=== PATIENT | female | born 1970 | race African-American/Black ===

== ENCOUNTER 2017-01-05 20:05 | Inpatient (IN) | payer OTHER ==
[~2017-01-05] VITALS: Ht 167.6 cm; Wt 68.1 kg
--- NOTE | 2017-01-05 20:31 | NUR ---
PT A/OX4 BREATHING EFFORTLESSLY ON ROOM AIR, PT STATES SHE HAS BEEN HVAING NAUSEA AND VOMTING OFF AND ON X 3 WEEKS, PT ON MONITOR FAMILY IS IN THE ROOM, IV PLACED, PROJECT MANAGEMENT MANAGER IN THE ROOM, WILL CONTINUE TO MONITOR
[2017-01-05 20:45] LABS: APPEARANCE,URINE Clear (CLEAR); BLOOD, URINE Moderate Ery/uL (NEGATIVE); COLOR,URINE Yellow (YELLOW); KETONES,URINE Trace (NEGATIVE); LEUKOCYTE ESTERASE ,URINE Negative (NEGATIVE); NITRITE, URINE Negative (NEGATIVE); PROTEIN,URINE 100 mg/dl (NEGATIVE); UGLUCOSE Negative (NEGATIVE); UROBILINOGEN,URINE 0.2 EU/dL (0.2)
[2017-01-05 20:46] LABS: PREGNANCY TEST URINE QUAL NEGATIVE (NEGATIVE)
[2017-01-05] MEDS ORDERED: IV SET PRIMARY 1 EA INFUS.SET MC ONE (20:46)
[2017-01-05] MEDS ORDERED: IV NS 0.9% 1,000 ML ONE (20:46)
[2017-01-05 20:53] LABS: BASOPHILS % (AUTO) 0.4 % (0.0-2.0); EOSINOPHILS # (AUTO) 0.1 /CMM (0.0-0.7); EOSINOPHILS % (AUTO) 0.6 % (0.0-6.0); HEMATOCRIT 39 % (33-45); HEMOGLOBIN 12.7 g/dL (11.5-14.8); LYMPHOCYTES # (AUTO) 1.9 /CMM (0.8-4.8); LYMPHOCYTES % (AUTO) 19.8 % (20.0-44.0); MEAN CORPUSCULAR HEMOGLOBIN 29 PG (26.0-33.0); MEAN CORPUSCULAR HGB CONC 32 g/dl (31.0-36.0); MEAN CORPUSCULAR VOLUME 88 fL (82-100); MONOCYTES # (AUTO) 0.4 /CMM (0.1-1.30); MONOCYTES % (AUTO) 4.4 % (2.0-12.0); NEUTROPHILS # (AUTO) 7.4 /CMM (1.8-8.9); NEUTROPHILS % (AUTO) 74.8 % (43.0-81.0); PLATELET COUNT (AUTO) 394 /CMM (150-450); RDW COEFFICIENT OF VARIATION 13.1 (11.5-15.0); RED BLOOD CELL COUNT(AUTO) 4.46 MIL/uL (4.0-5.2); WHITE BLOOD COUNT (AUTO) 9.8 K/uL (4.3-11.0)
[2017-01-05 20:54] LABS: BILIRUBIN,URINE SMALL (NEGATIVE)
[2017-01-05] MEDS ORDERED: IV NS 0.9% 1,000 ML BAG IV ONE (21:00)
[2017-01-05] MEDS ORDERED: IOHEXOL-300 100 ML VIAL IV ONE (21:04)
[2017-01-05] MEDS ORDERED: IV NS 0.9% 250 ML IV ONE ×2 (21:04→22:54)
[2017-01-05 21:05] LABS: CALCIUM, SERUM 9.4 mg/dL (8.5-10.1); CREATININE 1.2 mg/dL (0.6-1.3); POTASSIUM 3.1 mmol/L (3.5-5.1)
[2017-01-05 21:08] LABS: INR 1.21 (0.87-1.13); PROTHROMBIN TIME 12.7 SECS (9.5-12.7)
[2017-01-05 21:16] LABS: ALBUMIN 3.8 g/dL (3.4-5.0); BILIRUBIN,DIRECT 0.2 mg/dL (0.0-0.2); BILIRUBIN,TOTAL 1.4 mg/dL (0.2-1.0); TOTAL PROTEIN, SERUM 6.1 g/dL (6.4-8.2)
[2017-01-05 21:16] LABS: BACTERIA,URINE Moderate /HPF (None Seen); MUCUS,URINE Few /LPF (None Seen); SQUAMOUS EPITHELIAL CELL,UR Many /HPF (None Seen); URINE AMORPHOUS URATE Moderate /HPF (None Seen)
[2017-01-05] MEDS ORDERED: LORAZEPAM INJ 2 MG/ML VIAL ONE (22:39)
[2017-01-05] MEDS ORDERED: DIAZEPAM 5 MG/ML 2 ML DISP.SYRIN ONE (22:44)
[2017-01-05] MEDS ORDERED: CT SWABBABLE VALVE TRANS SET 1 EA INFUS.SET MC ONE (22:54)
[2017-01-05] MEDS ORDERED: IOHEXOL-350 100 ML VIAL IV ONE (22:54)
[2017-01-05] MEDS ORDERED: ONDANSETRON HCL/PF 4 MG/2 ML VIAL IV ONE (23:00)
[2017-01-05] MEDS ORDERED: LORAZEPAM INJ 2 MG/ML VIAL IV ONE (23:00)
[2017-01-05] MEDS ORDERED: DIAZEPAM 5 MG/ML 2 ML DISP.SYRIN IV ONE (23:00)
--- NOTE | 2017-01-05 23:19 | NUR ---
PT BACK FROM CT, PT SLEEPING IN NO APPARENT DISTRESS, MD MADE AWARE WILL CONTINUE TO MONITOR.
[2017-01-05] MEDS ORDERED: IV NS 0.9% 1,000 ML IV PRN (23:27)
[2017-01-05 23:30] VITALS: BP 135/88
[2017-01-05] MEDS ORDERED: MAG HYDROX/AL HYDROX/SIMETH 30 ML UDC PO PRN (23:30)
[2017-01-05] MEDS ORDERED: BUPR-51 PO (23:44)
[2017-01-05] MEDS ORDERED: ESCI20TA PO (23:44)
[2017-01-05] MEDS ORDERED: METOPROLOL TARTRATE 25 MG TABLET ONE (23:48)
[2017-01-05] MEDS ORDERED: SIMVASTATIN 20 MG TABLET ONE (23:48)
[2017-01-05] MEDS ORDERED: ENOXAPARIN SODIUM 80 MG/0.8 ML DISP.SYRIN SQ ONE (23:49)
[2017-01-05] MEDS: SIMVASTATIN 20 MG TABLET PO SCH (23:56)
[2017-01-05] MEDS: ASPIRIN EC 81 MG TABLET.DR PO SCH (23:57)
[2017-01-06] MEDS: ASPIRIN EC 81 MG TABLET.DR PO SCH
[2017-01-06] MEDS ORDERED: METOPROLOL TARTRATE 25 MG TABLET PO SCH
[2017-01-06] MEDS ORDERED: PROCHLORPERAZINE EDISYLATE 10 MG/2 ML VIAL IM PRN
[2017-01-06] MEDS ORDERED: ENOXAPARIN SODIUM 80 MG/0.8 ML DISP.SYRIN SQ ONE
[2017-01-06] MEDS ORDERED: NITROGLYCERIN 0.4 MG/TAB BOTTLE SL PRN
--- NOTE | 2017-01-06 | NUR ---
ASPHALT PLANT WORKER NOTE RECEIVED PATIENT FROM ER, PATIENT IS ALERT AND ORIENTEDX4, DENIES RESPIRATORY DISTRESS OR PAIN AT THIS TIME, COMPLAINS OF SEVERE NAUSEA AND VOMITING. IV ON RIGHT HAND IS PATENT AND INTACT, WILL CONNECT THE FLUID. TELE MONITOR SR 88. SRX2, BED IN LOW POSITION, CALL LIGHT WITHIN REACH, WILL CONTINUE TO MONITOR PATIENT.
[2017-01-06] MEDS ORDERED: ONDANSETRON HCL/PF 4 MG/2 ML VIAL ONE ×2 (00:05→03:18)
[2017-01-06] MEDS: ONDANSETRON HCL/PF 4 MG/2 ML VIAL IV PRN ×2 (00:11→03:57)
[2017-01-06] MEDS ORDERED: IV NS 0.9% 1,000 ML ONE (00:14)
[2017-01-06] MEDS ORDERED: IV SET PRIMARY PUMP SET 1 EA INFUS.SET MC ONE (00:14)
[2017-01-06 00:37] LABS: ABG BASE EXCESS -2.5 mmol/L; ABG PH 7.422 (7.350-7.450); ABG PO2 84.5 mmHg (75.0-100.0); AaDO2 25.7 mmHg; SITE, ABG Right Radial; VENT MODE, BG RA
[2017-01-06] MEDS ORDERED: POTASSIUM CL. PREMIX PERIPHER. 100 ML ONE (02:16)
--- NOTE | 2017-01-06 02:20 | NUR ---
AGRICULTURE TECHNICIAN NOTE PATIENT'S K LEVEL IS 3.1 AND ER DID NOT COVER IT. PAGED DR. SCHWARZ AND GOT AN ORDER OF KCL IV 20MEQ. ORDERS PUT IN AND WILL CARRY OUT.
[2017-01-06] MEDS ORDERED: SECONDARY IV SET 1 EA INFUS.SET MC ONE (02:25)
[2017-01-06] MEDS: POTASSIUM CL. PREMIX PERIPHER. 50 ML IV SCH ×2 (02:29→03:48)
[2017-01-06] MEDS ORDERED: MORPHINE SULFATE INJ 2 MG/ML DISP.SYRIN ONE (02:32)
[2017-01-06] MEDS: MORPHINE SULFATE INJ 2 MG/ML DISP.SYRIN IV PRN (02:39)
--- NOTE | 2017-01-06 02:40 | NUR ---
WEEKEND CAREGIVER NOTE PATIENT COMPLAINS OF ABDOMINAL PAIN 03/26, MORPHINE 2MG IVP GIVEN. WILL MONITOR FOR EFFECTIVENESS.
[2017-01-06 03:26] LABS: BASOPHILS % (AUTO) 0.2 % (0.0-2.0); EOSINOPHILS % (AUTO) 0.1 % (0.0-6.0); HEMATOCRIT 42 % (33-45); HEMOGLOBIN 13.4 g/dL (11.5-14.8); LYMPHOCYTES # (AUTO) 1.7 /CMM (0.8-4.8); LYMPHOCYTES % (AUTO) 12.4 % (20.0-44.0); MEAN CORPUSCULAR HEMOGLOBIN 29 PG (26.0-33.0); MEAN CORPUSCULAR HGB CONC 32 g/dl (31.0-36.0); MEAN CORPUSCULAR VOLUME 89 fL (82-100); MONOCYTES # (AUTO) 0.5 /CMM (0.1-1.30); MONOCYTES % (AUTO) 3.5 % (2.0-12.0); NEUTROPHILS # (AUTO) 11.5 /CMM (1.8-8.9); NEUTROPHILS % (AUTO) 83.8 % (43.0-81.0); PLATELET COUNT (AUTO) 366 /CMM (150-450); RDW COEFFICIENT OF VARIATION 13.9 (11.5-15.0); RED BLOOD CELL COUNT(AUTO) 4.67 MIL/uL (4.0-5.2); WHITE BLOOD COUNT (AUTO) 13.7 K/uL (4.3-11.0)
[2017-01-06 04:00] VITALS: BP 122/68
[2017-01-06 04:05] LABS: CALCIUM, SERUM 8.9 mg/dL (8.5-10.1); CREATININE 1.4 mg/dL (0.6-1.3); MAGNESIUM 1.9 mg/dL (1.8-2.4); PHOSPHORUS 4.2 mg/dL (2.5-4.9); POTASSIUM 3.7 mmol/L (3.5-5.1)
[2017-01-06 04:07] LABS: THYROID STIMULATING HORMONE 4.542 uIU/mL (0.358-3.74)
--- NOTE | 2017-01-06 06:47 | NUR ---
EYEGLASS LENS CUTTER NOTE PATIENT IS RESTING IN BED, NO S/S OF RESPIRATORY DISTRESS OR PAIN NOTED. IV ON RIGHT HAND IS PATENT AND INTACT, NS IS RUNNING. TELE MONITOR SR WITH INVERTED T WAVE 68. WILL ENDORSE TO DAY SHIFT FOR IRLANDA.
[2017-01-06 06:59] VITALS: BP 128/68
--- NOTE | 2017-01-06 07:15 | NUR ---
BAG INSPECTOR INITIAL NOTES REPORT RECEIVED AT THE BEDSIDE. PATIENT IS RESTING COMFORTABLY IN BED. NO SOB OR DISTRESS NOTED AT THIS TIME. PATIENT DENIES PAIN. HEART RATE IS SR AT 66. BED IN A LOW POSITION, CALL LIGHT WITHIN PATIENT REACH. WILL CONTINUE TO MONITOR.
[2017-01-06] MEDS ORDERED: IV NS 0.9% 1,000 ML IV PRN (08:13)
[2017-01-06 08:39] LABS: ALBUMIN 3.7 g/dL (3.4-5.0); BILIRUBIN,DIRECT 0.2 mg/dL (0.0-0.2); BILIRUBIN,TOTAL 1.4 mg/dL (0.2-1.0); TOTAL PROTEIN, SERUM 6.2 g/dL (6.4-8.2)
[2017-01-06] MEDS: PANTOPRAZOLE 40 MG VIAL IV SCH (08:56)
[2017-01-06] MEDS: METOPROLOL TARTRATE 25 MG TABLET PO SCH ×3 (08:56→17:24)
[2017-01-06] MEDS ORDERED: LORAZEPAM INJ 2 MG/ML VIAL IV PRN (11:00)
[2017-01-06] MEDS: DIAZEPAM 5 MG/ML 2 ML DISP.SYRIN IV PRN ×2 (11:00→20:38)
[2017-01-06 12:00] VITALS: BP 150/105
--- NOTE | 2017-01-06 13:58 | NUR ---
YARDER BOSS NOTE WAS TOLD BY JOSE, WHO IS CURRENTLY DOING ECHO ON PATIENT THAT THE EF IS ONLY 20. CALLED DR LAMB WHO ORDERED TO HAVE THE FLUIDS REDUCED TO 40ML/HR. CALLED [facility] FOR TONIO TO INFORM, WAITING FOR RETURN CALL.
[2017-01-06] MEDS ORDERED: ENOXAPARIN SODIUM 40 MG/0.4 ML DISP.SYRIN SQ SCH (14:39)
--- NOTE | 2017-01-06 14:47 | NUR ---
ROTARY ENGRAVER NOTE TONIO NOW AWARE OF PATIENT EF OF 20. TONIO ADDED DAILY LOVENOX TO PATIENT'S MEDS.
[2017-01-06 16:00] VITALS: BP 118/75
[2017-01-06] MEDS ORDERED: BUPROPION XL 150 MG TAB.ER.24 PO ONE (16:30)
--- NOTE | 2017-01-06 17:31 | NUR ---
director it CLOSING NOTE NO SIGNIFICANT CHANGES IN PATIENT CONDITION THROUGHOUT THE SHIFT. NO SOB OR DISTRESS NOTED AT THIS TIME. PATIENT DENIES PAIN. HEART RATE SR ON MONITOR. BED IN A LOW POSITION, CALL LIGHT WITHIN PATIENT REACH. ENDORSED FOR IRLANDA.
--- NOTE | 2017-01-06 19:30 | NUR ---
SPICE GRINDER NOTE, RECEIVED PATIENT AWAKE AND IN BED, NO S/S OR COMPLAINTS OF PAIN AT THIS TIME. PATIENT IS DISPLAYING NO S/S OF APPARENT DISTRESS AT THIS TIME. PATIENT BREATHING IS UNLABORED WITH EQUAL RISE AND FALL OF THE CHEST. PATIENT IS ALERT AND ORIENTED X 4 ON NASAL CANNULA 2 LITERS WITH A SPO2 98%. PATIENT HAS A SALINE LOCK ON RIGHT HAND THAT IS INTACT, PATENT, AND FLUSHING WELL WITH NO S/S OF INFILTRATION. PATIENT ASSISTED WITH TURNING AND REPOSITIONING Q2HR AND PRN FOR COMFORT AND CIRCULATION. PATIENT HAS NO NEEDS AT THIS TIME. PATIENT EDUCATED ON THE USE OF THE CALL LIGHT. PATIENT BED SIDE RAILS UP X2 FOR SAFETY, BED IS LOCKED AND LOW WILL CONTINUE TO MONITOR AND MAINTAIN SAFETY. SINUS RHYTHM WITH INVERTED T WAVE HEART RATE 79.
--- NOTE | 2017-01-06 19:47 | NUR ---
mold chipper closing notes Carina ROTHMAN endorsed to next shift RN to continue care. All needs provided, attended, and anticipated. kept patient clean and comfortable in bed, call light with in patient reach.
[2017-01-06 20:00] VITALS: BP 114/70
--- NOTE | 2017-01-06 20:38 | NUR ---
MIXER OPERATOR HOT METAL NOTE, PATIENT HAS A COMPLAINT OF FEELING ANXIOUS AND WOULD LIKE MEDICATION TO HELP CALM HER DOWN. PATIENT VITAL SIGNS ARE STABLE. GAVE VALIUM 4MG IV PUSH Q6HR PRN ORDERED. WILL REASSESS FOR ANXIETY AND I WILL CONTINUE TO MONITOR THIS PATIENT.
[2017-01-06] MEDS: ENOXAPARIN SODIUM 40 MG/0.4 ML DISP.SYRIN SQ SCH (21:15)
[2017-01-06] MEDS: SIMVASTATIN 20 MG TABLET PO SCH (21:16)
[2017-01-06 23:57] VITALS: BP 117/82
[2017-01-07] VITALS (9 sets, daily range): BP systolic 115–125; BP diastolic 75–104
[2017-01-07] MEDS: METOPROLOL TARTRATE 25 MG TABLET PO SCH ×4 (00:01→17:46)
[2017-01-07] MEDS: MORPHINE SULFATE INJ 2 MG/ML DISP.SYRIN IV PRN ×2 (01:47→20:22)
--- NOTE | 2017-01-07 01:47 | NUR ---
STEAMER TENDER NOTE, PATIENT HAS A COMPLAINT OF ABDOMINAL PAIN AT 5 OUT 10 ON THE PAIN SCALE. PATIENT VITAL SIGNS ARE STABLE. GAVE MORPHINE 2MG IV PUSH Q4HR PRN ORDERED. WILL REASSESS PAIN AND I WILL CONTINUE TO MONITOR THIS PATIENT.
--- NOTE | 2017-01-07 06:09 | NUR ---
GRINDER OPERATOR SURFACE TOOL NOTE, PATIENT AWAKE AND IN BED, HAS A COMPLAINT OF ABDOMINAL PAIN 3 OUT 10 ON THE PAIN SCALE. PATIENT IS RECEIVING IV PAIN MEDICATION FOR THIS PAIN. PATIENT IS DISPLAYING NO S/S OF APPARENT DISTRESS AT THIS TIME. PATIENT BREATHING IS UNLABORED WITH EQUAL RISE AND FALL OF THE CHEST. PATIENT IS ALERT AND ORIENTED X 4 ON NASAL CANNULA 2 LITERS WITH A SPO2 98%. PATIENT HAS A SALINE LOCK ON LEFT FOREARM 22 GAUGE THAT IS INTACT, PATENT, AND FLUSHING WELL WITH NO S/S OF INFILTRATION. PATIENT ASSISTED WITH TURNING AND REPOSITIONING Q2HR AND PRN FOR COMFORT AND CIRCULATION. ALL PATIENT NEEDS ANTICIPATED AND MET. PATIENT KEPT CLEAN, DRY, AND COMFORTABLE THROUGH OUT THE SHIFT. PATIENT BED SIDE RAILS UP X2 FOR SAFETY, BED IS LOCKED AND LOW WILL ENDORSE TO AM SHIFT NURSE FOR CONTINUATION OF CARE. SINUS RHYTHM HEART RATE 65.
[2017-01-07 07:11] LABS: HEMATOCRIT 46 % (33-45); HEMOGLOBIN 14.5 g/dL (11.5-14.8); LYMPHOCYTES # (AUTO) 1.6 /CMM (0.8-4.8); LYMPHOCYTES % (AUTO) 7.4 % (20.0-44.0); MEAN CORPUSCULAR HEMOGLOBIN 29 PG (26.0-33.0); MEAN CORPUSCULAR HGB CONC 32 g/dl (31.0-36.0); MEAN CORPUSCULAR VOLUME 91 fL (82-100); MONOCYTES # (AUTO) 1.3 /CMM (0.1-1.30); NEUTROPHILS # (AUTO) 18.2 /CMM (1.8-8.9); NEUTROPHILS % (AUTO) 86.6 % (43.0-81.0); PLATELET COUNT (AUTO) 356 /CMM (150-450); RDW COEFFICIENT OF VARIATION 14.3 (11.5-15.0); RED BLOOD CELL COUNT(AUTO) 5.09 MIL/uL (4.0-5.2)
[2017-01-07 08:37] LABS: ALBUMIN 3.7 g/dL (3.4-5.0); BILIRUBIN,TOTAL 2.4 mg/dL (0.2-1.0); CALCIUM, SERUM 8.8 mg/dL (8.5-10.1); MAGNESIUM 2.1 mg/dL (1.8-2.4); POTASSIUM 4.7 mmol/L (3.5-5.1); TOTAL PROTEIN, SERUM 6.1 g/dL (6.4-8.2)
[2017-01-07] MEDS ORDERED: BUPROPION XL 150 MG TAB.ER.24 PO SCH (09:00)
--- NOTE | 2017-01-07 09:05 | NUR ---
RN Notes On bed aw3ake,alert and oriented. Not in any form of distress.No chest pain. With 02 inhalation at 2 LPM via nasal canula saturating at 97% with no SOB. Both lungs clear to auscultate. With IV access on left forearm gg 22 patent and intact. On tele monitor SR with HR of 72. Spoke with CT department tech and said CT scheduled at 10 am. Resting comfortably.
[2017-01-07] MEDS: PANTOPRAZOLE 40 MG VIAL IV SCH (09:20)
[2017-01-07] MEDS ORDERED: IOHEXOL-350 100 ML VIAL IV ONE (09:29)
[2017-01-07] MEDS ORDERED: CT SWABBABLE VALVE TRANS SET 1 EA INFUS.SET MC ONE (09:29)
[2017-01-07] MEDS ORDERED: IV NS 0.9% 250 ML IV ONE (09:29)
[2017-01-07] MEDS ORDERED: METOPROLOL TARTRATE INJ 5 MG/5 ML AMPUL IVP ONE (10:10)
--- NOTE | 2017-01-07 10:56 | NUR ---
RN Notes Came back from radiology department and per RN Angel that procedure was not done because of elevated creatinine. CHAZ Norris is aware and ordered to obtain copy of echocardiogram done at the office of Dr Santos Boone, authorization obtained from patient and spoke to Tha. Will follow up.
--- NOTE | 2017-01-07 11:40 | NUR ---
CANCELLED PER NURSE(CHONG ) DUE TO HIGH CREAT.
--- NOTE | 2017-01-07 12:58 | NUR ---
RN Notes Spoke with Dr Glover and verified with him patient's diet and he said to give her mechanical soft diet
[2017-01-07] MEDS: BUPROPION 150 MG PO SCH (13:10)
--- NOTE | 2017-01-07 19:20 | NUR ---
MS/PROFESSOR OF ANTHROPOLOGY; RECEIVED PT IN BED SLEEPING. BREATHING NON LABORED AND EVEN. NO S/S OF DISTRESS. BED ON LOWER POSITION AND LOCKED FOR SAFETY. UPPER PART OF BED SIDE RAILS ARE UP FOR SAFETY. WILL CONTINUE TO MONITOR. CALL LIGHT WITHIN REACH.
--- NOTE | 2017-01-07 19:35 | NUR ---
MS/MANAGER FOOD BEVERAGE; RE CHECKED PT , PT IN BED AWAKE, ALERT AND ORIENTED. DENIES ANY PAIN. BREATHING NON LABORED. HL ON LFA INTACT. WITH MALE VISITOR. PT INSTRUCTED TO CALL FOR HELP AND CALL LIGHT WITHIN REACH. WILL CONTINUE TO MONITOR.
--- NOTE | 2017-01-07 20:05 | NUR ---
MS/BLOOD SPLATTER ANALYST; C/O ABDOMINAL PAIN WITH PAIN LEVEL 8 OUT OF 10 AND PT WANTS PAIN SHOT. WITH O2 2L NC ON. BP 119/ 99 , P 80 , O2 SAT ON 2 L NC 100%. I INFORMED THE RN TO GIVE PAIN SHOT.
--- NOTE | 2017-01-07 20:30 | NUR ---
MS/BANK NOTE DESIGNER; CHARGE NURSE KEELY GARCIA HER ROUNDS TOLD ME PT IS COLD CLAMMY. RE CHECKED BP ON RA 125/ 104, P 77 , O2 SAT ON 2L NC 98 %. PERSPIRING ALSO. LIVING SPECIALIST CHANGED PT TOP SHIRT PT WEARING TO HOSPITAL GOWN AND BED LINENS ALSO. PT AWAKE, ALERT AND VERBALLY RESPONSIVE. PT BIT ANXIOUS. PER LIVING SPECIALIST PT WAS LIKE THAT LAST NIGHT. OFFERED WARM BLANKET PT REFUSED. OFFERED WARM DRINKS REFUSED ALSO. CHARGE NURSE SAID TO CHECK PT BS.
--- NOTE | 2017-01-07 21:20 | NUR ---
MS/BURNER TECHNICIAN; BS 121 AND CHARGE NURSE KEELY INFORMED OF THE BS. I ASKED THE PT. IF OK TO HAVE WARM BLANKET AND SHE OK. SO WARM BLANKET APPLIED.
--- NOTE | 2017-01-07 22:00 | NUR ---
MS/INSURANCE COMPLIANCE ANALYST; BP RE CHECKED ON LA 116 / 85, P 65 , O2 SAT ON 2L NC 100 %.
--- NOTE | 2017-01-07 22:25 | NUR ---
MS/SPONSORSHIP COORDINATOR; SLEEPING AT THIS TIME. AWAKEN FOR MEDS GIVEN SWALLOW WITHOUT PROBLEM . BACK TO SLEEP. WILL CONTINUE TO MONITOR.
[2017-01-07] MEDS: ENOXAPARIN SODIUM 40 MG/0.4 ML DISP.SYRIN SQ SCH (22:29)
[2017-01-07] MEDS: ESCITALOPRAM OXALATE (10 MG) 10 MG TABLET PO SCH (22:32)
[2017-01-07] MEDS: SIMVASTATIN 20 MG TABLET PO SCH (22:34)
--- NOTE | 2017-01-07 23:30 | NUR ---
MS/CONSTRUCTION TRENCH DIGGER; DR. Saúl ROCHA CAME TO PT ROOM PT SLEEPING AT THIS TIME. DR. Saúl ROCHA ASKED RE PT CONDITION. I TOLD DR. Saúl ROCHA THAT PT WAS C/O ABD. PAIN AND PAIN SHOT OF MORPHINE 2 MG IVP WAS GIVEN PER OK REQUEST AND ORDERED. ALSO I TOLD HIM FURTHER THAT PT IS COLD CLAMMY VITAL SIGNS WERE FINE. I OFFERED PP MAALOX BUT REFUSED. DR. Saúl ROCHA IS AWARE OF PT WBC IS HIGH . HE SAID JUST MONITOR THE PT. I INFORMED THE CHARGE NURSE KEELY THAT I NOTIFIED DR. Saúl ROCHA OF PT CURRENT CONDITION.
[2017-01-08] VITALS (8 sets, daily range): BP systolic 110–126; BP diastolic 75–81
--- NOTE | 2017-01-08 | NUR ---
MS/LAMINATION ASSEMBLER; PT IB BED SLEEPING. BREATHING NON LABORED. WITH O2 2L NC ON.
[2017-01-08 00:38] LABS: APPEARANCE,URINE CLOUDY (CLEAR); BILIRUBIN,URINE NEGATIVE (NEGATIVE); BLOOD, URINE TRACE Ery/uL (NEGATIVE); COLOR,URINE YELLOW (YELLOW); KETONES,URINE NEGATIVE (NEGATIVE); LEUKOCYTE ESTERASE ,URINE NEGATIVE (NEGATIVE); NITRITE, URINE NEGATIVE (NEGATIVE); PROTEIN,URINE 2+ mg/dl (NEGATIVE); UGLUCOSE NEGATIVE (NEGATIVE)
[2017-01-08 00:45] LABS: RBC,URINE 0-2 /HPF (0-2)
[2017-01-08 00:46] LABS: BACTERIA,URINE Few /HPF (None Seen); SQUAMOUS EPITHELIAL CELL,UR Few /HPF (None Seen); URINE AMORPHOUS URATE Many /HPF (None Seen)
[2017-01-08 00:47] LABS: CREATININE, URINE 210.3 MG/DL (30.0-125.0); URINE TOTAL PROTEIN 115.4 mg/dL (0-11.9)
[2017-01-08] MEDS: METOPROLOL TARTRATE 25 MG TABLET PO SCH ×4 (00:55→17:49)
[2017-01-08 01:00] LABS: EOSINOPHIL,URINE None Seen
--- NOTE | 2017-01-08 02:15 | NUR ---
MS/DIRECTOR SKILLS; PT IN BED SLEEPING QUIETLY. BREATHING NON LABORED. WITH O2 2L NC ON. WILL CONTINUE TO MONITOR.
--- NOTE | 2017-01-08 04:00 | NUR ---
MS/LEGAL BILLING COORDINATOR; PT IN BED ASLEEP. BREATHING NON LABORED. CONTINUE TO MONITOR.
--- NOTE | 2017-01-08 06:33 | NUR ---
MS/ECHOCARDIOGRAPH TECH; PT SLEPT AT GOOD INTERVALS. BREATHING NON LABORED. NO S/S OF DISTRESS. PT STATES SHE VOIDED LAST NIGHT BUT NO BM. WILL CONTINUE TO MONITOR. CALL LIGHT WITHIN REACH. WILL ENDORSE TO THE DAY SHIFT NURSE.
[2017-01-08 06:58] LABS: ALBUMIN 3.5 g/dL (3.4-5.0); CALCIUM, SERUM 8.5 mg/dL (8.5-10.1); CREATININE 1.8 mg/dL (0.6-1.3); MAGNESIUM 2.2 mg/dL (1.8-2.4); PHOSPHORUS 4.8 mg/dL (2.5-4.9); POTASSIUM 4.2 mmol/L (3.5-5.1); TOTAL PROTEIN, SERUM 5.7 g/dL (6.4-8.2)
[2017-01-08 07:05] LABS: EOSINOPHILS % (AUTO) 0.1 % (0.0-6.0); HEMATOCRIT 41 % (33-45); HEMOGLOBIN 13.5 g/dL (11.5-14.8); LYMPHOCYTES # (AUTO) 1.2 /CMM (0.8-4.8); LYMPHOCYTES % (AUTO) 5.5 % (20.0-44.0); MEAN CORPUSCULAR HEMOGLOBIN 29 PG (26.0-33.0); MEAN CORPUSCULAR HGB CONC 33 g/dl (31.0-36.0); MEAN CORPUSCULAR VOLUME 89 fL (82-100); MONOCYTES # (AUTO) 1.5 /CMM (0.1-1.30); MONOCYTES % (AUTO) 7.1 % (2.0-12.0); NEUTROPHILS # (AUTO) 18.9 /CMM (1.8-8.9); NEUTROPHILS % (AUTO) 87.3 % (43.0-81.0); PLATELET COUNT (AUTO) 376 /CMM (150-450); RDW COEFFICIENT OF VARIATION 14.8 (11.5-15.0); RED BLOOD CELL COUNT(AUTO) 4.62 MIL/uL (4.0-5.2); WHITE BLOOD COUNT (AUTO) 21.6 K/uL (4.3-11.0)
--- NOTE | 2017-01-08 07:20 | NUR ---
RN INITIAL NOTES: RECEIVED PATIENT AWAKE IN BED IN NO ACUTE SIGNS OF DISTRESS. A/O X4, NO C/O PAIN OR DISCOMFORTS AT THIS TIME. ON 02 INHALATION VIA N/C AT 2LPM, BREATHING UNLABORED. IV ACCESS ON LEFT FA G #22 INTACT AND PATENT. CALL LIGHT WITH IN REACH OF PT. SIDE-RAILS UP X2. BED LOW AND LOCKED. SAFETY PRECAUTIONS MAINTAINED. WILL CONTINUE TO MONITOR ACCORDINGLY
[2017-01-08] MEDS: BUPROPION 150 MG PO SCH (08:21)
[2017-01-08] MEDS: PANTOPRAZOLE 40 MG VIAL IV SCH (08:21)
[2017-01-08] MEDS ORDERED: ALPRAZOLAM 1 MG TABLET PO PRN (08:30)
--- NOTE | 2017-01-08 10:43 | NUR ---
RN NOTES MOLDER WAX BALL CAME TO UNIT TO DRAW BLOOD FOR AMMONIA LEVEL BUT PATIENT WAS COMFORTABLY ASLEEP AND DIDN'T WANT TO DISTURB HER. MOLDER WAX BALL WILL COME TO DO IT LATER. WILL CONTINUE TO MONITOR
[2017-01-08] MEDS: ERGOCALCIFEROL (VITAMIN D 2) 50,000 UNIT CAPSULE PO SCH (11:11)
--- NOTE | 2017-01-08 14:30 | NUR ---
RN NOTES PATIENT COMPLAINTS OF STOMACH UPSET WHILE EATING, REQUESTED MAALOX 30ML AND WAS GIVEN. PATIENT CALM AND RESTING COMFORTABLY IN BED AT THIS TIME WITH FAMILY AT BEDSIDE. WILL CONTINUE TO MONITOR
--- NOTE | 2017-01-08 15:21 | NUR ---
RN NOTES URINE SPECIMEN FOR URINALYSIS AND CULTURE COLLECTED. CALLED LAB TO PICK-UP SPECIMEN.
[2017-01-08 16:24] LABS: APPEARANCE,URINE SL CLOUDY (CLEAR); BILIRUBIN,URINE NEGATIVE (NEGATIVE); BLOOD, URINE TRACE Ery/uL (NEGATIVE); COLOR,URINE YELLOW (YELLOW); KETONES,URINE NEGATIVE (NEGATIVE); LEUKOCYTE ESTERASE ,URINE NEGATIVE (NEGATIVE); NITRITE, URINE NEGATIVE (NEGATIVE); PROTEIN,URINE 2+ mg/dl (NEGATIVE); UGLUCOSE NEGATIVE (NEGATIVE)
[2017-01-08 16:33] LABS: BACTERIA,URINE Few /HPF (None Seen); CREATININE, URINE 197.9 MG/DL (30.0-125.0); RBC,URINE 0-2 /HPF (0-2); SQUAMOUS EPITHELIAL CELL,UR Moderate /HPF (None Seen); URINE TOTAL PROTEIN 83.4 mg/dL (0-11.9)
[2017-01-08 16:56] LABS: EOSINOPHIL,URINE None Seen
--- NOTE | 2017-01-08 18:50 | NUR ---
RN NOTES PATIENT RESTING IN BED ALERT AND ORIENTED X 4. VERBALLY RESPONSIVE WITH NO COMPLAINTS OF PAIN DURING THE DAY. CONTINUES ON 02 VIA N/C AT 2LPM AT THIS TIME, BREATHING UNLABORED WITH NO ACUTE RESPIRATORY DISTRESS NOTED. IV ACCESS ON LEFT FA INTACT AND PATENT. CALL LIGHT WITHIN REACH. ALL SAFETY PRECAUTIONS MAINTAINED. ALL NEEDS AND CARE WELL PROVIDED. DUE MEDS GIVEN ORDERED AND TOLERATED. ENDORSED TO JEWELRY DEPARTMENT SUPERVISOR FOR IRLANDA.
--- NOTE | 2017-01-08 19:25 | NUR ---
RN OPEN NOTES RECEIVED PATIENT RESTING IN BED WITH FAMILY AT BEDSIDE. A/O X4. NO SIGNS OF DISTRESS OR DISCOMFORT. BREATHING EVEN AND UNLABORED. ON 2LPM 02 VIA NC. IV ACCESS IN LFA PATENT AND INTACT, NO SIGNS OF REDNESS OR INFILTRATION. BED IN LOW LOCKED POSITION WITH SIDE RAILS X2. CALL LIGHT WITHIN REACH. WILL CONTINUE TO MONITOR.
[2017-01-08] MEDS: ESCITALOPRAM OXALATE (10 MG) 10 MG TABLET PO SCH (21:52)
[2017-01-08] MEDS: ENOXAPARIN SODIUM 30 MG/0.3 ML DISP.SYRIN SQ SCH (21:53)
[2017-01-09] MEDS: METOPROLOL TARTRATE 25 MG TABLET PO SCH ×4 (05:31→18:15)
[2017-01-09 06:40] LABS: EOSINOPHILS % (AUTO) 0.1 % (0.0-6.0); HEMATOCRIT 40 % (33-45); HEMOGLOBIN 12.9 g/dL (11.5-14.8); LYMPHOCYTES # (AUTO) 1.4 /CMM (0.8-4.8); LYMPHOCYTES % (AUTO) 8.6 % (20.0-44.0); MEAN CORPUSCULAR HEMOGLOBIN 29 PG (26.0-33.0); MEAN CORPUSCULAR HGB CONC 33 g/dl (31.0-36.0); MEAN CORPUSCULAR VOLUME 89 fL (82-100); MONOCYTES # (AUTO) 0.9 /CMM (0.1-1.30); MONOCYTES % (AUTO) 5.3 % (2.0-12.0); NEUTROPHILS # (AUTO) 14.2 /CMM (1.8-8.9); PLATELET COUNT (AUTO) 343 /CMM (150-450); RED BLOOD CELL COUNT(AUTO) 4.45 MIL/uL (4.0-5.2); WHITE BLOOD COUNT (AUTO) 16.5 K/uL (4.3-11.0)
--- NOTE | 2017-01-09 06:55 | NUR ---
RN CLOSING NOTES PATIENT RESTING IN BED. A/O X4. NO SIGNS OF DISTRESS OR DISCOMFORT. BREATHING EVEN AND UNLABORED. ON 2LPM 02 VIA NC. IV ACCESS IN LFA PATENT AND INTACT, NO SIGNS OF REDNESS OR INFILTRATION. NO SIGNIFICANT CHANGES THROUGH THE NIGHT. ALL NEEDS MET. BED IN LOW LOCKED POSITION WITH SIDE RAILS X2. CALL LIGHT WITHIN REACH. WILL ENDORSE TO AM SHIFT FOR IRLANDA.
[2017-01-09 06:56] LABS: ALBUMIN 3.4 g/dL (3.4-5.0); BILIRUBIN,TOTAL 2.4 mg/dL (0.2-1.0); CALCIUM, SERUM 8.2 mg/dL (8.5-10.1); CREATININE 1.6 mg/dL (0.6-1.3); MAGNESIUM 2.3 mg/dL (1.8-2.4); PHOSPHORUS 3.2 mg/dL (2.5-4.9); POTASSIUM 3.1 mmol/L (3.5-5.1); TOTAL PROTEIN, SERUM 5.4 g/dL (6.4-8.2)
--- NOTE | 2017-01-09 07:12 | NUR ---
RN INITIAL NOTES: PATIENT RECEIVED ASLEEP IN BED, EASILY AWAKENS. A/O X4, NO C/O PAIN OR DISCOMFORTS AT THIS TIME. ON 02 VIA N/C AT 2LPM, BREATHING UNLABORED. IV ACCESS ON LEFT FA G #22 INTACT AND PATENT. CALL LIGHT WITH IN REACH OF PT. SIDE-RAILS UP X2. BED LOW AND LOCKED. SAFETY PRECAUTIONS MAINTAINED. WILL CONTINUE TO MONITOR ACCORDINGLY
[2017-01-09 08:00] VITALS: BP 118/84
[2017-01-09] MEDS: PANTOPRAZOLE 40 MG VIAL IV SCH (08:47)
[2017-01-09] MEDS: BUPROPION 150 MG PO SCH (08:47)
--- NOTE | 2017-01-09 09:00 | NUR ---
RN NOTES PATIENT NOTED WITH LOW K 3.1. DR LAMB CAME AND EXAMINED PATIENT. ORDERED TO GIVE K DUR 20MEQ X 2DOSES. WILL CONTINUE TO MONITOR
[2017-01-09] MEDS: POTASSIUM CHLORIDE 20 MEQ TAB.PRT.SR PO SCH ×2 (09:13→11:22)
--- NOTE | 2017-01-09 09:23 | NUR ---
RN NOTES CHAZ SUN CAME AND EVALUATED PATIENT. HE EXPLAINED TO PATIENT REGARDING ALL BLOOD RESULTS THAT WAS DONE TO HER THIS MORNING AND PATIENT VERBALIZED UNDERSTANDING. WILL CONTINUE TO MONITOR.
[2017-01-09 09:44] LABS: *SPE A/G RATIO 1.9 (0.7-1.7); *SPE ALBUMIN 3.7 g/dL (2.9-4.4); *SPE ALPHA-1-GLOBULIN 0.2 g/dL (0.0-0.4); *SPE ALPHA-2-GLOBULIN 0.4 g/dL (0.4-1.0); *SPE BETA GLOBULIN 0.8 g/dL (0.7-1.3); *SPE GLOBULIN, TOTAL 1.9 g/dL (2.2-3.9); *SPE M-SPIKE Not Observed g/dL (Not Observed); *SPE PROTEIN TOTAL 5.6 g/dL (6.0-8.5); *SPEGAMMA GLOBULIN 0.5 g/dL (0.4-1.8)
[2017-01-09 12:36] LABS: PTH, INTACT 149 pg/mL (15-65)
--- NOTE | 2017-01-09 15:20 | NUR ---
RN NOTES PATIENT COMPLAINTS OF SLIGHT SOB 30 MINUTES AFTER PHYSICAL THERAPIST HAVE HER EVALUATED AND WALK FOR FEW STEPS. SP02 CHECKED AND WAS 95%. 02 VIA N/C AT 2LPM ADMINISTERED. CHAZ SUN MADE AWARE AND SAID TO CONTINUE TO CLOSELY MONITOR PATIENT.
[2017-01-09 16:00] VITALS: BP 112/88
--- NOTE | 2017-01-09 17:40 | NUR ---
RN NOTES CHAZ SAMSON CAME TO UNIT AND EVALUATED PATIENT AND ORDERED MULTIPLE BLOOD WORKS. LAB CALLED AND SAID THAT "[place]" TEST IS NOT DONE IN THE HOSPITAL. CHAZ SAMSON MADE AWARE AND SAID TO CANCELLED SAID BLOOD WORK. MRSA SWAB SAME ORDERED AND COLLECTED. SPUTUM SPECIMEN FOR CULTURE STILL NEED TO BE COLLECTED. WILL CONTINUE TO MONITOR
--- NOTE | 2017-01-09 17:58 | NUR ---
RN NOTES CINDER SNAPPER CAME TO DRAW BLOOD FOR BLOOD WORKS FROM PATIENT BUT PATIENT IS HARD STICK AND UN-ABLE TO DRAW. GENERAL MAINTENANCE HELPER SAID THAT SHE WILL COME AND TRY AGAIN LATER TONIGHT. WILL ENDORSED TO CHORAL DIRECTOR NURSE.
--- NOTE | 2017-01-09 18:45 | NUR ---
RN CLOSING NOTES PATIENT RESTING COMFORTABLY IN BED AT MODERATE HIGH BACKREST POSITION. ALERT AND ORIENTED X4, NO SIGNS OF DISTRESS OR DISCOMFORT. ALL NEEDS AND CARE PROVIDED WELL. ON 2LPM 02 VIA N/C IN PROGRESS, NO SIGNS OF ACUTE RESPIRATORY DISTRESS AT THIS TIME WITH SP02 OF 98% NOTED. IV ACCESS IN LFA PATENT AND INTACT, NO SIGNS OF REDNESS OR INFILTRATION. ALL DUE MEDS GIVEN ORDERED AND TOLERATED. BED IN LOW LOCKED POSITION WITH SIDE RAILS X2. CALL LIGHT WITHIN REACH. WILL ENDORSE TO RN TEACHER NURSE FOR IRLANDA.
--- NOTE | 2017-01-09 19:15 | NUR ---
RN OPEN NOTES RECEIVED PATIENT AWAKE IN BED WITH FAMILY AT BEDSIDE. A/O X4. NO SIGNS OF DISTRESS OR DISCOMFORT. BREATHING EVEN AND UNLABORED. ON 2LPM 02 VIA NC. IV ACCESS IN LFA PATENT AND INTACT, NO SIGNS OF REDNESS OR INFILTRATION. BED IN LOW LOCKED POSITION WITH SIDE RAILS X2. CALL LIGHT WITHIN REACH. WILL CONTINUE TO MONITOR.
[2017-01-09 20:00] VITALS: BP_SYST 123; BP_DIAS 77; BP_DIAS 86
[2017-01-09] MEDS: ESCITALOPRAM OXALATE (10 MG) 10 MG TABLET PO SCH (21:09)
[2017-01-09] MEDS: ENOXAPARIN SODIUM 30 MG/0.3 ML DISP.SYRIN SQ SCH (21:11)
[2017-01-10] VITALS: BP 127/85
[2017-01-10] MEDS: METOPROLOL TARTRATE 25 MG TABLET PO SCH ×5 (00:15→23:38)
[2017-01-10 06:34] LABS: BASOPHILS # (AUTO) 0.1 /CMM (0.0-0.2); BASOPHILS % (AUTO) 0.3 % (0.0-2.0); EOSINOPHILS % (AUTO) 0.3 % (0.0-6.0); HEMATOCRIT 44 % (33-45); HEMOGLOBIN 14.2 g/dL (11.5-14.8); LYMPHOCYTES % (AUTO) 10.4 % (20.0-44.0); MEAN CORPUSCULAR HEMOGLOBIN 29 PG (26.0-33.0); MEAN CORPUSCULAR HGB CONC 32 g/dl (31.0-36.0); MEAN CORPUSCULAR VOLUME 89 fL (82-100); MONOCYTES # (AUTO) 1.2 /CMM (0.1-1.30); MONOCYTES % (AUTO) 6.5 % (2.0-12.0); NEUTROPHILS # (AUTO) 15.6 /CMM (1.8-8.9); NEUTROPHILS % (AUTO) 82.5 % (43.0-81.0); PLATELET COUNT (AUTO) 376 /CMM (150-450); RDW COEFFICIENT OF VARIATION 14.6 (11.5-15.0); RED BLOOD CELL COUNT(AUTO) 4.96 MIL/uL (4.0-5.2)
[2017-01-10 06:51] LABS: ALBUMIN 3.5 g/dL (3.4-5.0); BILIRUBIN,TOTAL 2.5 mg/dL (0.2-1.0); CALCIUM, SERUM 8.5 mg/dL (8.5-10.1); CREATININE 1.4 mg/dL (0.6-1.3); POTASSIUM 4.2 mmol/L (3.5-5.1); TOTAL PROTEIN, SERUM 5.8 g/dL (6.4-8.2)
--- NOTE | 2017-01-10 06:58 | NUR ---
RN NOTES INFORMED ROLDAN WARE OF CRITICAL LAB VALUE- LACTIC ACID 2.7. WILL ENDORSE TO AM SHIFT FOR IRLANDA.
[2017-01-10 07:29] LABS: BAND % (MANUAL) 1 % (0.0-5.0); LYMPHOCYTES % (MANUAL) 12 % (16-48); MONOCYTES % (MANUAL) 3 % (0-11.0); NEUTROPHILS % (MANUAL) 84 (42-76)
[2017-01-10] MEDS ORDERED: IV NS 0.9% 1,000 ML BAG IV PRN (07:30)
[2017-01-10] MEDS ORDERED: IV NS 0.9% 1,000 ML IV PRN (07:30)
--- NOTE | 2017-01-10 07:30 | NUR ---
RECEIVED PT. IN AM,A/O X4,WEAK,PALE,VS STABLE.HEP LOCK IN PLACE.LT. FOREARM.
[2017-01-10 08:00] VITALS: BP 114/83
[2017-01-10] MEDS ORDERED: MEROPENEM 1 G in IV NS 0.9% 100 ML IV SCH (08:00)
[2017-01-10 08:56] LABS: BILIRUBIN,DIRECT 0.9 mg/dL (0.0-0.2)
[2017-01-10] MEDS ORDERED: FEE PK DOSING 1 MIN EA MC ONE (09:04)
[2017-01-10] MEDS ORDERED: SECONDARY IV SET 1 EA INFUS.SET MC ONE ×2 (09:09→23:31)
[2017-01-10] MEDS: MEROPENEM 1 G in IV NS 0.9% 100 ML IV SCH ×2 (09:15→20:23)
[2017-01-10] MEDS: BUPROPION 150 MG PO SCH (09:31)
[2017-01-10] MEDS: PANTOPRAZOLE 40 MG TABLET.DR PO SCH (09:31)
[2017-01-10] MEDS: VANCOMYCIN HCL 125 MG/2.5 ML ORAL.SUSP PO SCH ×4 (09:57→20:23)
[2017-01-10] MEDS ORDERED: VANCOMYCIN 1 GM in IV D5W 250 ML IV ONE (10:00)
[2017-01-10] MEDS: MICAFUNGIN SODIUM 100 MG in IV NS 0.9% 100 ML IV SCH (10:01)
--- NOTE | 2017-01-10 11:00 | NUR ---
PT. MADE AWARE THAT SPUTUM SAMPLE AND STOOL SAMPLE NEEDED.INSISTED ON GETTING OOB TO VOID ASSISTED BY TACK DRILLER AND RN,AND INSTRUCTED NOT TO GET OOB WITHOUT HELP.
[2017-01-10] MEDS: IV NS 0.9% 250 ML IV PRN (11:18)
[2017-01-10] MEDS ORDERED: IV SET PRIMARY PUMP SET 1 EA INFUS.SET MC ONE (11:21)
--- NOTE | 2017-01-10 12:00 | NUR ---
TONIO SUN MANAGER MANAGEMENT CONTACTED PT,S SPOUSE HERE AND WOULD LIKE TO TALK WITH HIM.TONIO HERE TO SPEAK WITH .
--- NOTE | 2017-01-10 13:00 | NUR ---
IV LEAKING AND RESTARTED RT.HAND BY TONIO SUN.
[2017-01-10 13:32] LABS: *EBV AB VCA, IgG >600.0 U/mL (0.0-17.9); *EBV AB VCA, IgM <36.0 U/mL (0.0-35.9)
--- NOTE | 2017-01-10 14:00 | NUR ---
SEVERAL TIMES PT. CALLED OUT AND SAID SHE COULD NOT BREATHE,BOTH TIMES POX READ 100%.PT. WITH HX OF PANIC ATTACKS.
[2017-01-10 16:00] VITALS: BP 124/83
--- NOTE | 2017-01-10 18:00 | NUR ---
DR. LUJAN,HIS STOCK UNLOADER AND DR. LAMB IN TO SEE PT.
--- NOTE | 2017-01-10 19:30 | NUR ---
RN NOTE RECEIVED REPORT. PT AAOX4. NO C/O PAIN OR DISTRESS AT THIS TIME. DENIES SOB/CP. BREATHING NON-LABORED AND EVEN, ON NC. R WRIST IV INTACT AND PATENT. RESTING COMFORTABLY IN BED. CALL LIGHT IN REACH, WILL CONT TO MONITOR.
[2017-01-10 20:00] VITALS: BP 116/88
[2017-01-10] MEDS: ENOXAPARIN SODIUM 30 MG/0.3 ML DISP.SYRIN SQ SCH (20:24)
[2017-01-10] MEDS: ESCITALOPRAM OXALATE (10 MG) 10 MG TABLET PO SCH (22:03)
[2017-01-10] MEDS: VANCOMYCIN 0.75 GM in IV D5W 250 ML IV SCH (23:37)
[2017-01-11] MEDS: METOPROLOL TARTRATE 25 MG TABLET PO SCH ×4 (05:26→23:23)
[2017-01-11 05:56] LABS: BASOPHILS # (AUTO) 0.1 /CMM (0.0-0.2); BASOPHILS % (AUTO) 0.4 % (0.0-2.0); EOSINOPHILS % (AUTO) 0.2 % (0.0-6.0); HEMATOCRIT 42 % (33-45); HEMOGLOBIN 13.8 g/dL (11.5-14.8); LYMPHOCYTES % (AUTO) 11.1 % (20.0-44.0); MEAN CORPUSCULAR HEMOGLOBIN 29 PG (26.0-33.0); MEAN CORPUSCULAR HGB CONC 33 g/dl (31.0-36.0); MEAN CORPUSCULAR VOLUME 88 fL (82-100); MONOCYTES # (AUTO) 1.3 /CMM (0.1-1.30); MONOCYTES % (AUTO) 6.9 % (2.0-12.0); NEUTROPHILS # (AUTO) 14.7 /CMM (1.8-8.9); NEUTROPHILS % (AUTO) 81.4 % (43.0-81.0); PLATELET COUNT (AUTO) 410 /CMM (150-450); RDW COEFFICIENT OF VARIATION 14.8 (11.5-15.0); WHITE BLOOD COUNT (AUTO) 18.1 K/uL (4.3-11.0)
[2017-01-11 06:13] LABS: ALBUMIN 3.2 g/dL (3.4-5.0); BILIRUBIN,TOTAL 2.1 mg/dL (0.2-1.0); CALCIUM, SERUM 8.1 mg/dL (8.5-10.1); CREATININE 1.2 mg/dL (0.6-1.3); POTASSIUM 3.8 mmol/L (3.5-5.1); TOTAL PROTEIN, SERUM 5.6 g/dL (6.4-8.2)
--- NOTE | 2017-01-11 06:15 | NUR ---
RN NOTE PHYSICIAN ANESTHESIOLOGIST MAGNOLIA MADE AWARE OF PT LACTIC ACID LEVEL OF 2.1 - NO NEW ORDERS AT THIS TIME.
--- NOTE | 2017-01-11 06:31 | NUR ---
RN NOTE NO SIGNIFICANT CHANGES OVERNIGHT. PT RESTING COMFORTABLY IN BED WITH EYES CLOSED. NO S/S OF ANY DISTRESS AT THIS TIME. BREATHING NON-LABORED AND EVEN ON NC 2L. SKIN COOL TO TOUCH. VSS. PT TEMP 97.4. PT AWARE THAT STOOL AND SPUTUM SAMPLE NEEDS TO BE COLLECTED. IV INTACT AND PATENT S/L. CALL LIGHT IN ERACH, WILL F/U WITH DAY SHIFT FOR IRLANDA.
--- NOTE | 2017-01-11 07:40 | NUR ---
MS RN OPENING RECEIVED PATIENT A/OX4 DENIES SOB, DIFFICULTY BREATHING OR PAIN. STATES NAUSEOUS WILL GIVE PRN ZOFRAN. PATIENT ASSISTED INTO CHAIR FOR BREAKFAST WITH MIN ASSIST. PATIENT WITH NEEDS IN REACH, STATES NO OTHER NEEDS. WILL ROUND Q2H OR LESS PER NEEDS.
--- NOTE | 2017-01-11 07:50 | NUR ---
MS RN NOTES PATIENT ASSISTED TO CHAIR FOR BREAKFAST
[2017-01-11] MEDS: MICAFUNGIN SODIUM 100 MG in IV NS 0.9% 100 ML IV SCH (07:53)
[2017-01-11] MEDS: ONDANSETRON HCL/PF 4 MG/2 ML VIAL IV PRN ×4 (07:54→21:37)
[2017-01-11 08:00] VITALS: BP 121/81
[2017-01-11] MEDS: PANTOPRAZOLE 40 MG TABLET.DR PO SCH (08:36)
[2017-01-11] MEDS: BUPROPION 150 MG PO SCH (08:37)
[2017-01-11 09:08] LABS: CMV, IgM <30.0 AU/mL (0.0-29.9)
[2017-01-11] MEDS: VANCOMYCIN HCL 125 MG/2.5 ML ORAL.SUSP PO SCH ×4 (09:24→20:42)
[2017-01-11] MEDS: MEROPENEM 1 G in IV NS 0.9% 100 ML IV SCH ×3 (09:24→20:41)
[2017-01-11] MEDS: VANCOMYCIN 0.75 GM in IV D5W 250 ML IV SCH ×2 (11:22→23:46)
[2017-01-11 16:00] VITALS: BP 124/77
[2017-01-11 16:53] VITALS: BP 124/77
--- NOTE | 2017-01-11 17:30 | NUR ---
MS RN NOTES PATIENT ASSISTED TO CHAIR. AMBULATED TO NURSES STATION AND BACK. PATIENT STABLE
--- NOTE | 2017-01-11 18:43 | NUR ---
MS RN CLOSING PATIENT STABLE NO COMPLICATIONS. TOLERATING FOOD NOW WITHOUT VOMITING. PATIENT ATE 25% OF BREAKFAST AND LUNCH. PATIENT STATES NO NEEDS. ALL DUE MEDS GIVEN AND ALL NEEDS MET. NAUSEA IMPROVED WITH PRN MEDICATIONS. PATIENT ASSISTED TO BED AND CALL LIGHT IN REACH, BED LOWERED AND LOCKED, RAILS UPX3 FOR SAFETY AND WILL ENDORSE TO RN FOR IRLANDA
--- NOTE | 2017-01-11 19:00 | NUR ---
MS RN OPENING NOTES: RECEIVED PT IN BED ASLEEP WITH AT BEDSIDE. CALL LIGHT WITHIN PT'S REACH. BED KEPT IN LOCKED, LOWEST POSITION, AND SIDE RAILS X 2 UP. PT HAS IV ON R WRIST #22G AND IS PATENT AND INTACT. PT IS ON HEP LOCK. NO SIGNS OR SYMPTOMS OF DISTRESS AT THIS TIME. WILL CONTINUE TO MONITOR PT.
[2017-01-11 20:00] VITALS: BP 102/69
[2017-01-11] MEDS ORDERED: SECONDARY IV SET 1 EA INFUS.SET MC ONE (20:33)
[2017-01-11] MEDS: ENOXAPARIN SODIUM 30 MG/0.3 ML DISP.SYRIN SQ SCH (20:44)
[2017-01-11] MEDS: ESCITALOPRAM OXALATE (10 MG) 10 MG TABLET PO SCH (21:37)
--- NOTE | 2017-01-11 21:37 | NUR ---
MS RN NOTES: PT REQUESTED FOR ZOFRAN 4MG. PT FELT NAUSEOUS. WILL CONTINUE TO MONITOR PT.
--- NOTE | 2017-01-11 23:23 | NUR ---
MS RN NOTES: LOPRESSOR 50MG WAS HELD D/T BP 106/75 HR 80. WILL CONTINUE TO MONITOR PT.
[2017-01-12] MEDS: MEROPENEM 1 G in IV NS 0.9% 100 ML IV SCH ×3 (04:01→20:42)
[2017-01-12] MEDS: METOPROLOL TARTRATE 25 MG TABLET PO SCH ×3 (05:39→17:40)
[2017-01-12 07:15] LABS: BASOPHILS # (AUTO) 0.1 /CMM (0.0-0.2); BASOPHILS % (AUTO) 0.6 % (0.0-2.0); EOSINOPHILS # (AUTO) 0.1 /CMM (0.0-0.7); EOSINOPHILS % (AUTO) 0.5 % (0.0-6.0); HEMATOCRIT 44 % (33-45); HEMOGLOBIN 14.1 g/dL (11.5-14.8); LYMPHOCYTES # (AUTO) 2.3 /CMM (0.8-4.8); MEAN CORPUSCULAR HEMOGLOBIN 29 PG (26.0-33.0); MEAN CORPUSCULAR HGB CONC 32 g/dl (31.0-36.0); MEAN CORPUSCULAR VOLUME 90 fL (82-100); MONOCYTES # (AUTO) 1.2 /CMM (0.1-1.30); MONOCYTES % (AUTO) 7.4 % (2.0-12.0); NEUTROPHILS # (AUTO) 11.9 /CMM (1.8-8.9); NEUTROPHILS % (AUTO) 76.5 % (43.0-81.0); PLATELET COUNT (AUTO) 378 /CMM (150-450); RDW COEFFICIENT OF VARIATION 14.4 (11.5-15.0); RED BLOOD CELL COUNT(AUTO) 4.91 MIL/uL (4.0-5.2); WHITE BLOOD COUNT (AUTO) 15.6 K/uL (4.3-11.0)
--- NOTE | 2017-01-12 07:15 | NUR ---
MS RN CLOSING NOTES: PT IS IN BED ASLEEP. PT IS A/O X4. PT DID NOT HAVE A BM DURING SHIFT. COMMODE OUTPUT WAS 300ML. PT HAS IV ON R WRIST #22G AND IS PATENT AND INTACT AND HEP LOCK. CALL LIGHT WITHIN PT'S REACH. BED KEPT IN LOCKED, LOWEST POSITION, AND SIDE RAILS X 2 UP. PT KEPT CLEAN, DRY, AND COMFORTABLE. ENDORSED TO AM NURSE FOR IRLANDA.
--- NOTE | 2017-01-12 07:30 | NUR ---
m/s catcher filter tip: initial assessment received pt in bed sounds asleep. no s/s of resp. distress noted. call light within reach. will continue to monitor.
[2017-01-12 07:46] LABS: ALBUMIN 3.2 g/dL (3.4-5.0); CALCIUM, SERUM 8.5 mg/dL (8.5-10.1); CREATININE 1.3 mg/dL (0.6-1.3); POTASSIUM 3.8 mmol/L (3.5-5.1); TOTAL PROTEIN, SERUM 5.6 g/dL (6.4-8.2)
[2017-01-12 08:00] VITALS: BP 121/71
[2017-01-12] MEDS: PANTOPRAZOLE 40 MG TABLET.DR PO SCH (08:44)
[2017-01-12] MEDS: VANCOMYCIN HCL 125 MG/2.5 ML ORAL.SUSP PO SCH ×4 (08:44→20:42)
[2017-01-12] MEDS: BUPROPION 150 MG PO SCH (08:46)
[2017-01-12] MEDS: MICAFUNGIN SODIUM 100 MG in IV NS 0.9% 100 ML IV SCH (08:54)
--- NOTE | 2017-01-12 09:00 | NUR ---
M/S OPERATIONS TEAM LEADER: MD VISIT SEEN AND EXAMINED BY TONIO SUN ([facility]) AT THIS TIME. ENCOURAGED PT TO GET OUT OF BED AND AMBULATE, BUT REFUSED AT THIS TIME. PT STILL WANTS TO SLEEP. INSTRUCTED TO CALL FOR ASSISTANCE. WILL CONTINUE TO MONITOR.
--- NOTE | 2017-01-12 10:55 | NUR ---
m/s quality review trainer: notes sleeping at interval, but easily arousable. call light within reach.
[2017-01-12] MEDS: VANCOMYCIN 1 GM in IV D5W 250 ML IV SCH ×2 (12:25→23:11)
[2017-01-12] MEDS: ONDANSETRON HCL/PF 4 MG/2 ML VIAL IV PRN ×2 (14:03→20:59)
--- NOTE | 2017-01-12 14:03 | NUR ---
m/s torpedo shooter: notes c/o nausea, but no vomiting. at bedside. medicated with zofran 4mg ivp by rn. instructed to call for assistance.
--- NOTE | 2017-01-12 14:33 | NUR ---
m/s airline reservationist: notes verbalized relief of nausea. remains at bedside. will continue to monitor.
[2017-01-12 16:00] VITALS: BP 126/81
--- NOTE | 2017-01-12 16:00 | NUR ---
M/S SOLID WASTE ENGINEER: NOTES PT ABLE TO AMBULATE TO BATHROOM WITH NO ASSISTANCE. REMAINS AT BEDSIDE. INSTRUCTED TO CALL FOR ASSISTANCE. WILL CONTINUE TO MONITOR.
--- NOTE | 2017-01-12 18:42 | NUR ---
m/s cement railroad car loader: notes in bed awake, watching tv. no c/o pain, n/v, or any discomfort. needs attended. instructed to call for assistance. will continue to monitor.
--- NOTE | 2017-01-12 19:05 | NUR ---
MS RN OPENING NOTES: RECEIVED PT IN BED AWAKE LAYING DOWN IN BED AND IS A/O X4. PT VOICED THAT HER WILL BE BACK SOON. PT IS ON ROOM AIR AND IS TOLERATING WELL. CALL LIGHT WITHIN PT'S REACH. BED KEPT IN LOCKED, LOWEST POSITION, AND SIDE RAILS X 2 UP. PT HAS L HAND #22G IV AND IS PATENT AND INTACT AND IS ON HEP LOCK AT THE MOMENT. NO SIGNS OR SYMPTOMS OF DISTRESS AT THIS TIME. WILL CONTINUE TO MONITOR PT.
[2017-01-12 20:00] VITALS: BP 100/68
[2017-01-12 20:04] VITALS: BP 100/68
[2017-01-12] MEDS: ENOXAPARIN SODIUM 30 MG/0.3 ML DISP.SYRIN SQ SCH (20:45)
[2017-01-12] MEDS: ESCITALOPRAM OXALATE (10 MG) 10 MG TABLET PO SCH (20:59)
[2017-01-13] MEDS: METOPROLOL TARTRATE 25 MG TABLET PO SCH ×4 (00:23→17:41)
[2017-01-13] MEDS: ALPRAZOLAM 1 MG TABLET PO PRN ×2 (02:58→17:45)
--- NOTE | 2017-01-13 02:58 | NUR ---
MS RN NOTES: PT WAS FOUND HAVING AN ANXIETY ATTACK IN BED. PT'S BLOOD PRESSURE WAS 113/83 HR 63, PULSE OX 98%. ADMINISTERED XANAX 0.5MG PO. WILL CONTINUE TO MONITOR PT.
[2017-01-13] MEDS: MEROPENEM 1 G in IV NS 0.9% 100 ML IV SCH ×3 (04:01→21:15)
[2017-01-13 07:03] LABS: BASOPHILS % (AUTO) 0.4 % (0.0-2.0); HEMATOCRIT 43 % (33-45); HEMOGLOBIN 13.8 g/dL (11.5-14.8); LYMPHOCYTES # (AUTO) 1.3 /CMM (0.8-4.8); MEAN CORPUSCULAR HEMOGLOBIN 29 PG (26.0-33.0); MEAN CORPUSCULAR HGB CONC 32 g/dl (31.0-36.0); MEAN CORPUSCULAR VOLUME 89 fL (82-100); MONOCYTES # (AUTO) 0.9 /CMM (0.1-1.30); MONOCYTES % (AUTO) 6.7 % (2.0-12.0); NEUTROPHILS # (AUTO) 10.6 /CMM (1.8-8.9); NEUTROPHILS % (AUTO) 82.9 % (43.0-81.0); PLATELET COUNT (AUTO) 306 /CMM (150-450); RDW COEFFICIENT OF VARIATION 14.9 (11.5-15.0); RED BLOOD CELL COUNT(AUTO) 4.81 MIL/uL (4.0-5.2); WHITE BLOOD COUNT (AUTO) 12.8 K/uL (4.3-11.0)
[2017-01-13 07:05] LABS: CALCIUM, SERUM 8.5 mg/dL (8.5-10.1); CREATININE 1.5 mg/dL (0.6-1.3); POTASSIUM 3.9 mmol/L (3.5-5.1)
--- NOTE | 2017-01-13 07:35 | NUR ---
MS RN NOTES: ALL NEEDS WERE ATTENDED AND ANTICIPATED FOR. PT IS A/O X 4. PT IS ASLEEP IN BED. CALL LIGHT WITHIN PT'S REACH. PT KEPT COMFORTABLE. BED KEPT IN LOCKED, LOWEST POSITION, AND SIDE RAILS X 2 UP. PT HAS IV ON L HAND #22G AND IS PATENT AND INTACT. PT GOT UP ONCE DURING SHIFT TO USE THE BATHROOM AND HAD A BM. SAMPLE WAS TAKEN AND NOTIFIED LAB. NO SIGNS OR SYMPTOMS OF DISTRESS NOTED AT THIS TIME. ENDORSED TO AM NURSE FOR IRLANDA.
--- NOTE | 2017-01-13 07:36 | NUR ---
AM RN NOTE Received patient sleeping comfortably in her bed, no acute distress noted. No SOB noted resp even and non-labored. IV site intact and patent. Bed in low locked position. Will continue to monitor.
[2017-01-13 08:00] VITALS: BP 110/78
[2017-01-13] MEDS: VANCOMYCIN HCL 125 MG/2.5 ML ORAL.SUSP PO SCH ×4 (08:27→21:16)
[2017-01-13] MEDS: PANTOPRAZOLE 40 MG TABLET.DR PO SCH (08:27)
[2017-01-13] MEDS: BUPROPION 150 MG PO SCH (08:27)
[2017-01-13] MEDS: MICAFUNGIN SODIUM 100 MG in IV NS 0.9% 100 ML IV SCH (08:31)
--- NOTE | 2017-01-13 08:40 | NUR ---
AM RN NOTE Jr PULP HOUSE SUPERVISOR at station, Lactic acid 2.2 results notified to him with NNO at this time.
[2017-01-13 09:05] LABS: ALBUMIN 3.1 g/dL (3.4-5.0); BILIRUBIN,DIRECT 0.6 mg/dL (0.0-0.2); BILIRUBIN,TOTAL 1.9 mg/dL (0.2-1.0); TOTAL PROTEIN, SERUM 5.4 g/dL (6.4-8.2)
[2017-01-13] MEDS: VANCOMYCIN 1 GM in IV D5W 250 ML IV SCH (11:44)
[2017-01-13 13:20] LABS: HEPATITIS Be AB Negative (Negative)
[2017-01-13 16:00] VITALS: BP 97/67
--- NOTE | 2017-01-13 16:00 | NUR ---
AM RN NOTE Patient sitting in the chair and family @ bedside. Pt IV site noted with leakage, re-inserted new site on LAC #22.
--- NOTE | 2017-01-13 18:15 | NUR ---
AM RN NOTE Patient sitting in the chair, eating dinner. All needs met and attended. Xanax was given for anxiety with effective results. IV site intact. Will endorse care to next shift.
--- NOTE | 2017-01-13 19:30 | NUR ---
MS RN NOTE RECEIVED PATIENT FROM DAY SHIFT, PATIENT IS ALERT AND ORIENTEDX4, LOOKS WEAK, NO S/S OF RESPIRATORY DISTRESS OR PAIN NOTED. IV ON LEFT UPPER ARM IS PATENT AND INTACT, HL ONLY. SRX2, BED IN LOW POSITION, CALL LIGHT WITHIN REACH, WILL CONTINUE TO MONITOR PATIENT.
[2017-01-13 20:00] VITALS: BP 101/73
[2017-01-13] MEDS: ENOXAPARIN SODIUM 30 MG/0.3 ML DISP.SYRIN SQ SCH (21:16)
[2017-01-13] MEDS: ESCITALOPRAM OXALATE (10 MG) 10 MG TABLET PO SCH (21:16)
[2017-01-14] MEDS: VANCOMYCIN 1 GM in IV D5W 250 ML IV SCH ×2 (00:05→11:17)
[2017-01-14] MEDS: MEROPENEM 1 G in IV NS 0.9% 100 ML IV SCH ×3 (05:00→21:02)
[2017-01-14] MEDS: METOPROLOL TARTRATE 25 MG TABLET PO SCH ×5 (06:00→23:24)
--- NOTE | 2017-01-14 06:00 | NUR ---
MS RN NOTE HAVE BEEN HOLDING LOPRESSOR PO DUE TO PT'S BP WAS RUNNING LOW.
--- NOTE | 2017-01-14 06:53 | NUR ---
MS RN NOTE PATIENT IS RESTING IN BED COMFORTABLY, NO S/S OF RESPIRATORY DISTRESS OR PAIN NOTED. NO ACUTE DISTRESS NOTED DURING THE CITIZEN PARTICIPATION SPECIALIST. WILL ENDORSE TO DAY SHIFT FOR IRLANDA.
[2017-01-14 07:12] LABS: BASOPHILS % (AUTO) 0.3 % (0.0-2.0); EOSINOPHILS # (AUTO) 0.2 /CMM (0.0-0.7); EOSINOPHILS % (AUTO) 1.6 % (0.0-6.0); HEMATOCRIT 39 % (33-45); HEMOGLOBIN 12.8 g/dL (11.5-14.8); LYMPHOCYTES # (AUTO) 2.3 /CMM (0.8-4.8); LYMPHOCYTES % (AUTO) 18.1 % (20.0-44.0); MEAN CORPUSCULAR HEMOGLOBIN 29 PG (26.0-33.0); MEAN CORPUSCULAR HGB CONC 33 g/dl (31.0-36.0); MEAN CORPUSCULAR VOLUME 88 fL (82-100); MONOCYTES # (AUTO) 0.9 /CMM (0.1-1.30); NEUTROPHILS # (AUTO) 9.2 /CMM (1.8-8.9); PLATELET COUNT (AUTO) 304 /CMM (150-450); RDW COEFFICIENT OF VARIATION 14.8 (11.5-15.0); RED BLOOD CELL COUNT(AUTO) 4.43 MIL/uL (4.0-5.2); WHITE BLOOD COUNT (AUTO) 12.6 K/uL (4.3-11.0)
[2017-01-14 07:27] LABS: CALCIUM, SERUM 8.3 mg/dL (8.5-10.1); CREATININE 1.5 mg/dL (0.6-1.3); MAGNESIUM 1.9 mg/dL (1.8-2.4); PHOSPHORUS 2.7 mg/dL (2.5-4.9); POTASSIUM 3.4 mmol/L (3.5-5.1)
--- NOTE | 2017-01-14 07:35 | NUR ---
MS RN OPENING NOTE PATIENT IS ALERT AND ORIENTED x4. NO PAIN AT THIS TIME. NO SOB OR DISTRESS NOTED. CALL LIGHT WITHIN REACH. SAFETY MEASURES IMPLEMENTED. ABLE TO COMMUNICATE NEEDS. AMBULATORY WITH ASSISTANCE OR WITH WALKER. IV INTACT AND PATENT NO REDNESS OR SWELLING NOTED. WILL CONTINUE TO MONITOR
[2017-01-14 08:00] VITALS: BP 115/81
[2017-01-14] MEDS ORDERED: SECONDARY IV SET 1 EA INFUS.SET MC ONE ×2 (08:15→20:58)
[2017-01-14] MEDS: VANCOMYCIN HCL 125 MG/2.5 ML ORAL.SUSP PO SCH ×4 (08:21→21:03)
[2017-01-14] MEDS: MICAFUNGIN SODIUM 100 MG in IV NS 0.9% 100 ML IV SCH (08:21)
[2017-01-14] MEDS: BUPROPION 150 MG PO SCH (08:22)
[2017-01-14] MEDS: PANTOPRAZOLE 40 MG TABLET.DR PO SCH (08:22)
[2017-01-14] MEDS ORDERED: POTASSIUM CHLORIDE 20 MEQ TAB.PRT.SR PO SCH (10:00)
[2017-01-14 10:23] LABS: ALBUMIN 2.6 g/dL (3.4-5.0); BILIRUBIN,DIRECT 0.3 mg/dL (0.0-0.2); BILIRUBIN,TOTAL 1.4 mg/dL (0.2-1.0); TOTAL PROTEIN, SERUM 4.8 g/dL (6.4-8.2)
--- NOTE | 2017-01-14 13:00 | NUR ---
ms rn note WHEN ADMINISTERING [facility], [employer] WAS NOT ALLOWING ME TO SCAN SCHEDULED TIME ON MY SHIFT. PATIENT CASE MANAGER HAD ADMINISTERED 5 AM DOSE, BUT UNABLE TO DOCUMENT DUE TO [employer] UPDATE. SPOKE WITH PHARMACY TO OVERRIDE 5 AM DOSE AND THEN GIVE MY 1300 MEDICATION. INFORMED CHARGE NURSE
--- NOTE | 2017-01-14 15:27 | NUR ---
MS RN NOTE PATIENT LET ME KNOW THAT IV WAS BOTHERING HER. CHECKED IV SITE, AND NOTICED THAT IV WAS INFILTRATED. REMOVED IV LINE AND NOTIFIED MD FOR POSSIBLE MIDLINE INSERTION. NOTIFIED CHARGE NURSE. PROVIDED ICE PACK AND ADVISED PATIENT TO HAVE HAND ELEVATE MUCH POSSIBLE. PATIENT RETURNED VERBALIZATION
[2017-01-14 16:00] VITALS: BP 98/69
--- NOTE | 2017-01-14 18:24 | NUR ---
MS RN CLOSING NOTE PATIENT IS ALERT AND ORIENTED X4. NO PAIN AT THIS TIME. NO SOB OR DISTRESS NOTED. SAFETY MEASURES IMPLEMENTED. CALL LIGHT WITHIN REACH AT ALL TIMES. ALL DUE MEDICATION GIVEN ORDERED. IV INTACT AND PATENT NO REDNESS OR SWELLING. ABLE TO COMMUNICATE NEEDS. WILL ENDORSE TO VEGETABLE HARVEST WORKER NURSE
--- NOTE | 2017-01-14 19:05 | NUR ---
MS RN OPENING NOTES: RECEIVED PT IN BED A/O X 4 AND IS ASLEEP. PT HAS IV ON L AC 22G AND IS PATENT AND INTACT. CALL LIGHT WITHIN PT'S REACH. BED KEPT IN LOCKED, LOWEST POSITION, AND SIDE RAILS X 2 UP. NO SIGNS OR SYMPTOMS OF DISTRESS AT THIS TIME. WILL CONTINUE TO MONITOR PT.
[2017-01-14 20:00] VITALS: BP 96/68
[2017-01-14] MEDS ORDERED: IV SET PRIMARY PUMP SET 1 EA INFUS.SET MC ONE (20:42)
[2017-01-14] MEDS: ESCITALOPRAM OXALATE (10 MG) 10 MG TABLET PO SCH (21:03)
[2017-01-14] MEDS: IV NS 0.9% 250 ML IV PRN (21:04)
[2017-01-14] MEDS: ENOXAPARIN SODIUM 30 MG/0.3 ML DISP.SYRIN SQ SCH (21:05)
[2017-01-14] MEDS: ALPRAZOLAM 1 MG TABLET PO PRN (21:21)
--- NOTE | 2017-01-14 21:21 | NUR ---
MS RN NOTES: PT STARTED TO HAVE ANXIETY AND REQUESTED FOR HER XANAX 0.5MG. BP WAS 113/77 HR 62. WILL CONTINUE TO MONITOR PT.
--- NOTE | 2017-01-14 23:24 | NUR ---
MS RN NOTES: LOPRESSOR 50MG WAS HELD D/T LOW BLOOD PRESSURE : 100/69 HR 64 ; WILL CONTINUE TO MONITOR PT.
[2017-01-14 23:30] VITALS: BP 100/69
[2017-01-15] MEDS: MEROPENEM 1 G in IV NS 0.9% 100 ML IV SCH ×3 (04:03→20:49)
[2017-01-15] MEDS: VANCOMYCIN 1 GM in IV D5W 250 ML IV SCH (05:15)
[2017-01-15] MEDS: METOPROLOL TARTRATE 25 MG TABLET PO SCH ×3 (05:38→17:19)
--- NOTE | 2017-01-15 06:00 | NUR ---
MS RN NOTES: LOPRESSOR WAS HELD D/T DECREASED BP : 105/78 HR 74 ; WILL CONTINUE TO MONITOR PT.
--- NOTE | 2017-01-15 07:10 | NUR ---
MS RN CLOSING NOTES: ALL NEEDS WERE ATTENDED AND ANTICIPATED FOR. NO SIGNS OR SYMPTOMS OF DISTRESS NOTED. CALL LIGHT WITHIN PT'S REACH. PT KEPT COMFORTABLE. BED KEPT IN LOCKED, LOWEST POSITION, AND SIDE RAILS X 2 UP. PT VOICED THAT SHE WAS HAPPY SHE WAS ABLE TO SLEEP THROUGHOUT THE NIGHT. PT HAS AN IV ON R FOREARM #22G AND IS PATENT AND INTACT. ENDORSED TO AM NURSE FOR IRLANDA.
--- NOTE | 2017-01-15 07:31 | NUR ---
MS RN OPENING NOTE PATIENT IS ALERT AND ORIENTED x4. NO PAIN AT THIS TIME. NO SOB OR DISTRESS NOTED. CALL LIGHT WITHIN REACH. SAFETY MEASURES IMPLEMENTED. IV INTACT AND PATENT NO REDNESS OR SWELLING NOTED. ABLE TO COMMUNICATE NEEDS. WILL CONTINUE TO MONITOR PATIENT
[2017-01-15 07:57] LABS: CALCIUM, SERUM 8.3 mg/dL (8.5-10.1); CREATININE 1.5 mg/dL (0.6-1.3); POTASSIUM 3.9 mmol/L (3.5-5.1)
[2017-01-15 08:00] VITALS: BP 113/75
[2017-01-15] MEDS: PANTOPRAZOLE 40 MG TABLET.DR PO SCH (08:25)
[2017-01-15] MEDS: VANCOMYCIN HCL 125 MG/2.5 ML ORAL.SUSP PO SCH ×4 (08:26→21:28)
[2017-01-15] MEDS: BUPROPION 150 MG PO SCH (08:26)
[2017-01-15] MEDS: LISINOPRIL (5MG) 5 MG TABLET PO SCH (08:29)
[2017-01-15] MEDS: ERGOCALCIFEROL (VITAMIN D 2) 50,000 UNIT CAPSULE PO SCH (11:16)
--- NOTE | 2017-01-15 11:52 | NUR ---
MS RN NOTE PATIENT HAS SCHEDULED BLOOD PRESSURE MEDICATION, HELD DUE TO PATIENT'S BLOOD PRESSURE BEING TOO LOW. NOTIFIED PHARMACY AND CHARGE NURSE. WILL CONTINUE TO MONITOR PATIENT'S BLOOD PRESSURE AND CONTINUE TO MONITOR PATIENT.
[2017-01-15] MEDS ORDERED: IV NS 0.9% 250 ML IV ONE (14:02)
[2017-01-15] MEDS ORDERED: IV SET PRIMARY PUMP SET 1 EA INFUS.SET MC ONE (14:02)
[2017-01-15 16:00] VITALS: BP 102/74
--- NOTE | 2017-01-15 18:09 | NUR ---
MS RN CLOSING NOTE PATIENT IS ALERT AND ORIENTED x4. NO PAIN AT THIS TIME. NO SOB OR DISTRESS NOTED. CALL LIGHT WITHIN REACH AT ALL TIMES. SAFETY MEASURES IMPLEMENTED. ABLE TO COMMUNICATE NEEDS. IV INTACT AND PATENT NO REDNESS OR SWELLING NOTED. ALL DUE MEDICATIONS GIVEN ORDERED. POSSIBLE DISCHARGE TOMORROW, WILL ENDORSE TO RADIO INTERFERENCE SUPERVISOR NURSE
[2017-01-15 20:00] VITALS: BP 104/76
--- NOTE | 2017-01-15 20:00 | NUR ---
MS RESIDENTIAL APPRAISER INITIAL NOTES RECEIVED PT IN BED AWAKE AND ALERT WATCHING TV AT THIS TIME, NO N/V NOTED, PT STATED SHE MUCH FEEL BETTER NOW . HEPLOCK AT THIS TIME PATENT AND INTACT. KEPT HER COMFORTABLE AT ALL TIMES. PLACE CALL LIGHT AT REACH. WILL CONTINUE TO MONITOR.
[2017-01-15] MEDS: ESCITALOPRAM OXALATE (10 MG) 10 MG TABLET PO SCH ×2 (21:26→21:31)
[2017-01-15] MEDS: ALPRAZOLAM 1 MG TABLET PO PRN (21:31)
[2017-01-15] MEDS: ENOXAPARIN SODIUM 30 MG/0.3 ML DISP.SYRIN SQ SCH (21:32)
--- NOTE | 2017-01-16 | NUR ---
ROTARY DRUM TANNER/NOTES PT SLEEPING COMFORTABLY IN BED AFTER XANAX GIVEN EARLIER PER PT REQUESTED, NO SIGNS OF ANY ACUTE DISTRESS NOTED. VANCOMYCIN INFUSING NO ADVERSE REACTION NOTED. KEPT HER WARM AND COMFORTABLE AT ALL TIMES. WILL CONTINUE TO MONITOR.PLACE CALL LIGHT AT REACH.
[2017-01-16] MEDS ORDERED: SECONDARY IV SET 1 EA INFUS.SET MC ONE (00:18)
[2017-01-16] MEDS: VANCOMYCIN 1 GM in IV D5W 250 ML IV SCH (00:20)
[2017-01-16] MEDS: MEROPENEM 1 G in IV NS 0.9% 100 ML IV SCH (04:39)
[2017-01-16] MEDS: METOPROLOL TARTRATE 25 MG TABLET PO SCH ×3 (05:58→12:13)
--- NOTE | 2017-01-16 05:59 | NUR ---
SEED CLEANING MANAGER/NOTES PT SLEEPING COMFORTABLY IN BED REFUSED TO TAKE HER BLOOD PRESSURE, SHE WANTS TO REST MORE, DENIES ANY PAIN OR ANY DISCOMFORT. WILL CONTINUE TO MONITOR.
[2017-01-16 07:00] LABS: CALCIUM, SERUM 8.6 mg/dL (8.5-10.1); CREATININE 1.5 mg/dL (0.6-1.3); POTASSIUM 3.2 mmol/L (3.5-5.1)
--- NOTE | 2017-01-16 07:00 | NUR ---
SECOND GRADE TEACHER/CLOSING NOTES PT REMAINS SLEEPING COMFORTABLY IN BED WITHOUT ANY ACUTE DISTRESS NOTED. STABLE EVGENY THE NIGHT AND SLEPT WELL. ALL DUE MEDS GIVEN ENDORSE TO AM NURSE.
--- NOTE | 2017-01-16 07:30 | NUR ---
MS RN AM NOTES RECEIVED PT IN BED ASLEEP, RESPONDS TO NAME AND TOUCH. ALERT/ORIENTED X 4, ON RA, NAD, NO SOB, RESPIRATION UNLABORED, DENIES ANY PAIN, RFA 22G FLUSHES WELL, SITE CLEAR. AMB WITH ASSIST, [facility] SOFT DIET. DISCUSSED PLAN OF CARE. PLACE CALL LIGHT AT REACH. WILL CONTINUE TO MONITOR.
[2017-01-16 07:58] LABS: ALBUMIN 2.8 g/dL (3.4-5.0); BILIRUBIN,DIRECT 0.3 mg/dL (0.0-0.2); BILIRUBIN,TOTAL 1.2 mg/dL (0.2-1.0); TOTAL PROTEIN, SERUM 5.2 g/dL (6.4-8.2)
[2017-01-16 08:00] VITALS: BP 108/74
[2017-01-16] MEDS: LISINOPRIL (5MG) 5 MG TABLET PO SCH (08:43)
[2017-01-16] MEDS: PANTOPRAZOLE 40 MG TABLET.DR PO SCH (08:43)
[2017-01-16] MEDS: VANCOMYCIN HCL 125 MG/2.5 ML ORAL.SUSP PO SCH ×2 (08:44→12:13)
[2017-01-16] MEDS: BUPROPION 150 MG PO SCH (08:44)
--- NOTE | 2017-01-16 09:30 | NUR ---
MS RN NOTES ADMINISTERED DUE MEDS.
[2017-01-16] MEDS ORDERED: POTASSIUM CHLORIDE 10 MEQ TABLET.SA PO ONE ×2 (10:00→11:00)
[2017-01-16] MEDS ORDERED: LISI5TAB45 PO (10:56)
[2017-01-16] MEDS ORDERED: METO100T7 PO (10:56)
--- NOTE | 2017-01-16 11:09 | NUR ---
MS RN NOTES KDUR TAB GIVEN EARLIER 30 MEQ.
[2017-01-16 15:26] VITALS: BP 100/72
--- NOTE | 2017-01-16 15:26 | NUR ---
MS RN DC NOTES PATIENT SEEN BY DR. SCHWARZ TODAY. DISCHARGED TO HOME PER MD IN STABLE CONDITION. PROVIDED DC INSTRUCTIONS, MED RECON LIST AND HEALTH TEACHINGS, IV ACCESS ON RT FA REMOVED, NO BLEEDING, DRESSING IN PLACE. ALL BELONGINGS CHECKED AND RETURNED. ALL PAPER WORKS SIGNED. PT TO FOLLOW UP WITH PCP IN 1-2 WEEKS AND WILL MAKE OWN APPOINTMENT. ACCOMPANIED BY AND SAM MCAT TUTOR TO LOBBY VIA WHEELCHAIR. WILL BE TRANSPORTED TO HOME VIA PRIVATE CAR.
[2017-01-16] MEDS ORDERED: MEROPENEM 1 G in IV NS 0.9% 100 ML IV SCH (17:00)
== END 2017-01-16 15:25 | disposition home or self-care (01) | DRG 280 ==
LOC: ER 20:08 → TELE 23:09 → MED 01-07 09:19
DX: I21.4 Non-ST elevation (NSTEMI) myocardial infarction (principal); N17.0 Acute kidney failure with tubular necrosis; I50.23 Acute on chronic systolic (congestive) heart failure; K72.00 Acute and subacute hepatic failure without coma; I40.0 Infective myocarditis; B19.10 Unspecified viral hepatitis B without hepatic coma; E87.2 Acidosis; J90 Pleural effusion, not elsewhere classified; J98.11 Atelectasis; E28.2 Polycystic ovarian syndrome; K21.9 Gastro-esophageal reflux disease without esophagitis; K25.9 Gastric ulcer, unspecified as acute or chronic, without hemorrhage or perforation; F41.0 Panic disorder [episodic paroxysmal anxiety]; E87.6 Hypokalemia; E86.0 Dehydration; B33.24 Viral cardiomyopathy; F17.200 Nicotine dependence, unspecified, uncomplicated; Z79.899 Other long term (current) drug therapy; K76.0 Fatty (change of) liver, not elsewhere classified; F41.9 Anxiety disorder, unspecified; K52.9 Noninfective gastroenteritis and colitis, unspecified; R73.9 Hyperglycemia, unspecified; S30.1XXA Contusion of abdominal wall, initial encounter; X58.XXXA Exposure to other specified factors, initial encounter; Y93.9 Activity, unspecified; Y92.009 Unspecified place in unspecified non-institutional (private) residence as the place of occurrence of the external cause; R74.0 Nonspecific elevation of levels of transaminase and lactic acid dehydrogenase [LDH]; E05.90 Thyrotoxicosis, unspecified without thyrotoxic crisis or storm; E55.9 Vitamin D deficiency, unspecified; B34.9 Viral infection, unspecified; I45.81 Long QT syndrome; Z86.19 Personal history of other infectious and parasitic diseases; F12.90 Cannabis use, unspecified, uncomplicated; N83.9 Noninflammatory disorder of ovary, fallopian tube and broad ligament, unspecified; K66.0 Peritoneal adhesions (postprocedural) (postinfection)
CPT/HCPCS: 36415; 36600; 71010-TC; 76700-TC; 76856-TC; 80048-TC; 80053-TC; 80061-TC; 80076-TC; 80202-TC; 81000-TC; 82140-TC; 82248-TC; 82306; 82550-TC; 82570-TC; 82803-TC; 82962-TC; 82977-TC; 83605-TC; 83690-TC; 83735-TC; 83880; 83970; 84100-TC; 84155; 84155-TC; 84165; 84300-TC; 84439-TC; 84443-TC; 84480; 84484-TC; 84703-TC; 85025-TC; 85730-TC; 86644; 86645; 86663; 86664; 86665; 86704; 86705; 86706; 86707; 86709; 86803; 87040-TC; 87045-TC; 87081-TC; 87086-TC; 87340; 87350; 87400; 87798; 93307-TC; 94799-TC; 97001-TC; A4606; A6253; C9113; J0780; J1650; J2060; J2185; J2248; J2270; J2405; J3360; J3370; J3480; J3490; J7030; J7050; J7060; Q9967; Z7610

== ENCOUNTER 2017-01-31 20:37 | Emergency (ER) | payer OTHER ==
[~2017-01-31] VITALS: Ht 167.6 cm; Wt 68.0 kg
[~2017-01-31 20:37] MED LIST: BUPR-51 PO; ESCI20TA PO; LISI5TAB45 PO; METO100T7 PO
[2017-01-31] MEDS ORDERED: ONDANSETRON HCL/PF 4 MG/2 ML VIAL IVP ONE (21:00)
--- NOTE | 2017-01-31 21:00 | NUR ---
PT PRESENTED TO THE ER WITH A C/O N/V. PT AMBULATED TO BED #4. PT'S IS AT THE BEDSIDE. PT APPEARS PALE AND IS C/O GENERALIZED WEAKNESS.
[2017-01-31] MEDS ORDERED: ONDANSETRON HCL/PF 4 MG/2 ML VIAL ONE ×2 (21:14→22:06)
[2017-01-31 21:24] LABS: BASOPHILS # (AUTO) 0.1 /CMM (0.0-0.2); BASOPHILS % (AUTO) 0.8 % (0.0-2.0); EOSINOPHILS # (AUTO) 0.2 /CMM (0.0-0.7); EOSINOPHILS % (AUTO) 1.5 % (0.0-6.0); HEMATOCRIT 43 % (33-45); HEMOGLOBIN 13.5 g/dL (11.5-14.8); LYMPHOCYTES % (AUTO) 18.3 % (20.0-44.0); MEAN CORPUSCULAR HEMOGLOBIN 27 PG (26.0-33.0); MEAN CORPUSCULAR HGB CONC 32 g/dl (31.0-36.0); MEAN CORPUSCULAR VOLUME 87 fL (82-100); MONOCYTES # (AUTO) 0.7 /CMM (0.1-1.30); MONOCYTES % (AUTO) 6.7 % (2.0-12.0); NEUTROPHILS # (AUTO) 7.9 /CMM (1.8-8.9); NEUTROPHILS % (AUTO) 72.7 % (43.0-81.0); PLATELET COUNT (AUTO) 365 /CMM (150-450); RED BLOOD CELL COUNT(AUTO) 4.94 MIL/uL (4.0-5.2); WHITE BLOOD COUNT (AUTO) 10.9 K/uL (4.3-11.0)
[2017-01-31 21:25] LABS: APPEARANCE,URINE CLEAR (CLEAR); BILIRUBIN,URINE NEGATIVE (NEGATIVE); BLOOD, URINE TRACE-INTA Ery/uL (NEGATIVE); COLOR,URINE YELLOW (YELLOW); KETONES,URINE NEGATIVE (NEGATIVE); LEUKOCYTE ESTERASE ,URINE TRACE (NEGATIVE); NITRITE, URINE NEGATIVE (NEGATIVE); PROTEIN,URINE 2+ mg/dl (NEGATIVE); UGLUCOSE NEGATIVE (NEGATIVE); UROBILINOGEN,URINE 0.2 EU/dL (0.2)
[2017-01-31 21:34] LABS: BACTERIA,URINE Rare /HPF (None Seen); MUCUS,URINE Few /LPF (None Seen)
[2017-01-31 21:36] LABS: CALCIUM, SERUM 9.7 mg/dL (8.5-10.1); CREATININE 1.6 mg/dL (0.6-1.3); POTASSIUM 4.4 mmol/L (3.5-5.1)
--- NOTE | 2017-01-31 21:38 | NUR ---
CXR IN PROGRESS AT THE BEDSIDE.
[2017-01-31 21:42] LABS: ALBUMIN 3.6 g/dL (3.4-5.0); BILIRUBIN,DIRECT 0.3 mg/dL (0.0-0.2); BILIRUBIN,TOTAL 1.5 mg/dL (0.2-1.0); TOTAL PROTEIN, SERUM 6.6 g/dL (6.4-8.2)
--- NOTE | 2017-01-31 21:42 | NUR ---
XRAY DONE AT THE BEDSIDE.
--- NOTE | 2017-01-31 21:42 | NUR ---
US IN PROGRESS AT THE BEDSIDE.
[2017-01-31] MEDS ORDERED: IV SET PRIMARY PUMP SET 1 EA INFUS.SET MC ONE (21:57)
[2017-01-31] MEDS ORDERED: Magnesium 1GM/D5W 100ML PREMIX 100 ML IV ONE (21:57)
[2017-01-31] MEDS ORDERED: Magnesium 1GM/D5W 100ML PREMIX 100 ML IV SCH (22:00)
[2017-01-31] MEDS ORDERED: ONDANSETRON HCL/PF 4 MG/2 ML VIAL IV ONE (23:00)
--- NOTE | 2017-01-31 23:00 | NUR ---
PT APPEARS TO BE RESTING COMFORTABLY. NO C/O PAIN OR DISTRESS NOTED.
--- NOTE | 2017-02-01 00:06 | NUR ---
IV removed. Catheter intact and site benign. Pressure and 4x4 applied to site. No bleeding noted.Patient discharged to home in stable condition. Written and verbal after care instructions given. Patient verbalizes understanding of instruction AND RX. PT AMBULATED OUT WITH A STEADY GAIT. VSS. PT'S IS DRIVING PT HOME.
[2017-02-01 00:07] VITALS: BP 125/87
== END 2017-02-01 00:07 | disposition home or self-care (01) ==
LOC: ER 20:37
DX: R11.2 Nausea with vomiting, unspecified (principal); E28.2 Polycystic ovarian syndrome; K21.9 Gastro-esophageal reflux disease without esophagitis; I51.7 Cardiomegaly; Z88.8 Allergy status to other drugs, medicaments and biological substances; Z88.1 Allergy status to other antibiotic agents
CPT/HCPCS: 36415; 71010; 74000; 76700; 80048; 80076; 81001; 83690; 83735; 84484; 85025; 93005; 96365; 96375; 96376; 99285; A4606; J2405 ×2; J3475; Z7610; 81000-TC

== ENCOUNTER 2017-02-07 23:35 | Inpatient (IN) | payer OTHER ==
[~2017-02-07] VITALS: Ht 167.6 cm; Wt 65.8 kg
--- NOTE | 2017-02-07 23:45 | NUR ---
TO BED 8 A 46 YO FEMALE BIBSELF, C/O LEFT UPPER ABD PAIN AT 6/10 WITH NVD SINCE 8PM. NONDIAPHORETIC. AFEBRILE. ONGOING TELE MONITOR. GOWNED. INITIATED SAFETY AND COMFORT MEASURES. AWAITING FOR ER MD LUU.
[2017-02-08] MEDS ORDERED: ONDANSETRON HCL/PF 4 MG/2 ML VIAL IVP ONE (00:30)
[2017-02-08] MEDS ORDERED: IV NS 0.9% 1,000 ML BAG IV ONE (00:30)
[2017-02-08] MEDS ORDERED: diphenhydrAMINE HCL 50 MG/ML VIAL IV ONE (00:30)
[2017-02-08] MEDS ORDERED: METOCLOPRAMIDE HCL 10 MG/2 ML VIAL IV ONE (00:30)
[2017-02-08] MEDS ORDERED: ONDANSETRON HCL/PF 4 MG/2 ML VIAL ONE (00:49)
[2017-02-08] MEDS ORDERED: IV SET PRIMARY 1 EA INFUS.SET MC ONE (00:49)
[2017-02-08] MEDS ORDERED: IV NS 0.9% 1,000 ML ONE (00:49)
[2017-02-08] MEDS ORDERED: METOCLOPRAMIDE HCL 10 MG/2 ML VIAL ONE ×2 (00:49→04:39)
[2017-02-08] MEDS ORDERED: diphenhydrAMINE HCL 50 MG/ML VIAL ONE (00:50)
--- NOTE | 2017-02-08 00:50 | NUR ---
STARTED A SALINE LOCK ON THE LFA G20, BLOOD DRAWN AND SENT TO LAB.
[2017-02-08 00:58] LABS: BASOPHILS # (AUTO) 0.1 /CMM (0.0-0.2); BASOPHILS % (AUTO) 0.5 % (0.0-2.0); EOSINOPHILS % (AUTO) 0.3 % (0.0-6.0); HEMATOCRIT 42 % (33-45); HEMOGLOBIN 13.4 g/dL (11.5-14.8); LYMPHOCYTES # (AUTO) 1.5 /CMM (0.8-4.8); LYMPHOCYTES % (AUTO) 10.7 % (20.0-44.0); MEAN CORPUSCULAR HEMOGLOBIN 27 PG (26.0-33.0); MEAN CORPUSCULAR HGB CONC 32 g/dl (31.0-36.0); MEAN CORPUSCULAR VOLUME 86 fL (82-100); MONOCYTES # (AUTO) 0.4 /CMM (0.1-1.30); MONOCYTES % (AUTO) 2.8 % (2.0-12.0); NEUTROPHILS # (AUTO) 12.2 /CMM (1.8-8.9); NEUTROPHILS % (AUTO) 85.7 % (43.0-81.0); PLATELET COUNT (AUTO) 430 /CMM (150-450); RDW COEFFICIENT OF VARIATION 16.4 (11.5-15.0); RED BLOOD CELL COUNT(AUTO) 4.93 MIL/uL (4.0-5.2); WHITE BLOOD COUNT (AUTO) 14.3 K/uL (4.3-11.0)
--- NOTE | 2017-02-08 01:30 | NUR ---
PATIENT REPORTED STILL FEELING NAUSEOUS, NO VOMITING NOTED. DR RUSSO NOTIFIED.
[2017-02-08 01:36] LABS: INR 1.24 (0.87-1.13); PROTHROMBIN TIME 13.5 SECS (9.5-12.7)
[2017-02-08 01:42] LABS: CALCIUM, SERUM 9.7 mg/dL (8.5-10.1); CREATININE 1.6 mg/dL (0.6-1.3); POTASSIUM 4.2 mmol/L (3.5-5.1)
[2017-02-08 01:48] LABS: ALBUMIN 3.8 g/dL (3.4-5.0); BILIRUBIN,DIRECT 0.5 mg/dL (0.0-0.2); BILIRUBIN,TOTAL 1.5 mg/dL (0.2-1.0); TOTAL PROTEIN, SERUM 6.8 g/dL (6.4-8.2)
[2017-02-08 01:49] LABS: TROPONIN I < 0.017 ng/mL (0.00-0.056)
[2017-02-08 01:54] LABS: B-TYPE NATRIURETIC PEPTIDE 3228 PG/ML (0-125)
--- NOTE | 2017-02-08 02:34 | NUR ---
CALLED [facility] FOR ADMISSION. DR. BRIGGS PAGED. WAITING FOR CALL BACK.
--- NOTE | 2017-02-08 02:36 | NUR ---
CALLED RN SUP FOR TELE BED.
[2017-02-08] MEDS ORDERED: CARV25TA2 PO (02:48)
[2017-02-08] MEDS ORDERED: RAMI5CAP PO (02:48)
[2017-02-08] MEDS ORDERED: ONDA4TAB11 PO (02:48)
[2017-02-08] MEDS ORDERED: SPIR25TA4 PO (02:48)
[2017-02-08] MEDS ORDERED: RANI150T12 PO (02:48)
[2017-02-08] MEDS ORDERED: CLON1TAB4 PO (02:48)
[2017-02-08] MEDS ORDERED: ALPR0.5T8 PO (02:48)
--- NOTE | 2017-02-08 02:59 | NUR ---
Report given to Janet ROTHMAN for admission and kimberly.
[2017-02-08] MEDS ORDERED: Z GUARD REMEDY 2 OZ OINT TP PRN (03:00)
[2017-02-08] MEDS ORDERED: ALPRAZOLAM 0.5 MG TABLET PO PRN (03:00)
[2017-02-08] MEDS ORDERED: ONDANSETRON HCL/PF 4 MG/2 ML VIAL IVP PRN (03:00)
--- NOTE | 2017-02-08 03:15 | NUR ---
Transported to [facility] bed 304-2, no incident noted.
[2017-02-08] MEDS ORDERED: IV NS 0.9% 1,000 ML IV ONE (03:30)
--- NOTE | 2017-02-08 03:30 | NUR ---
TELE/RN RECEIVE PATIENT FROM [facility] AWAKE, ALERT, ORIENTED, VERY NAUSEOUS, NO DISTRESS NOTED, WILL CALL MD IF CONTINUES TO BE NAUSEOUS. ADMISSION DONE PER PROTOCOL, PLAN OF CARE DISCUSSED WITH THE PATIENT, VERBALIZED UNDERSTANDING AND AGREEMENT, TAUGHT THE USE OF CALL LIGHT AND PLACED IT AT BEDSIDE WITHIN REACH. WILL MONITOR.
[2017-02-08] MEDS ORDERED: IV SET PRIMARY PUMP SET 1 EA INFUS.SET MC ONE (03:36)
[2017-02-08] MEDS ORDERED: ALPRAZOLAM 0.5 MG TABLET ONE (03:46)
[2017-02-08 04:00] VITALS: BP 131/93
--- NOTE | 2017-02-08 04:10 | NUR ---
TELE/RN PATIENT CONTINUES TO BE NAUSEOUS, NOT ABLE TO GIVE ZOFRAN IT HAS ONLY BEEN 3 HOURS SINCE LAST DOSE. PLACED A CALL TO DR. BRIGGS. LEFT MESSAGE.
--- NOTE | 2017-02-08 04:49 | NUR ---
TELE/RN REGLAN 10 MG IVP WAS GIVEN ORDERED FOR NAUSEA. WILL MONITOR.
[2017-02-08] MEDS ORDERED: METOCLOPRAMIDE HCL 10 MG/2 ML VIAL IV PRN (05:00)
--- NOTE | 2017-02-08 05:19 | NUR ---
TELE/RN PATIENT HAS MED BOTTLES AT BEDSIDE AND REFUSED TO HAVE THEM SENT TO PHARMACY. PER PATIENT HER WILL COME IN A.M. AND SHE WILL SEND THEM HOME. INSTRUCTED THE PATIENT NOT TO TAKE ANY OF HER HOME MEDS WITHOUT LETTING HER NURSE KNOW. VERBALIZED UNDERSTANDING.
--- NOTE | 2017-02-08 05:52 | NUR ---
TELE/RN PATIENT IS SLEEPING AT THIS TIME, APPEAR COMFORTABLE, NO SIGNS OF DISTRESS NOTED, CALL LIGHT IN REACH. WILL MONITOR.
[2017-02-08 06:52] VITALS: BP 138/85
--- NOTE | 2017-02-08 06:56 | NUR ---
TELE/RN STILL SLEEPING, AROUSABLE, APPEAR COMFORTABLE, NO DISTRESS NOTED, CALL LIGHT IN REACH. ALL NEEDS ATTENDED AT THIS TIME. WILL CONTINUE TO MONITOR.
--- NOTE | 2017-02-08 07:00 | NUR ---
TELE/RN OPENING NOTES PT. IS IN BED A&OX4. NO SOB, BREATHING ON ROOM AIR UNLABORED. NO S/S OF ACUTE DISTRESS PT. DENIES NAUSEA. IV FLUIDS RUNNING AT 75 ML/HR ON LEFT FOREARM. BED IS IN LOW POSITION, 2 SIDE RAILS UP, AND INSTRUCTED PT. TO US CALL LIGHT FOR ASSISTANCE.
--- NOTE | 2017-02-08 07:15 | NUR ---
TELE/RN OPENING NOTES PT. IS ON DRYWALL HANGER HELPER IN SINUS RHYTHM 97 BPM.
--- NOTE | 2017-02-08 07:30 | NUR ---
TELE/RN NOTES PT. IS ON LEATHER SPLITTER WITH SINUS RHYTHM 97 BPM.
[2017-02-08 08:00] VITALS: BP 138/85
[2017-02-08] MEDS ORDERED: FAMOTIDINE (20 MG) 20 MG TABLET PO PRN (09:00)
[2017-02-08] MEDS ORDERED: RAMIPRIL 5 MG CAPSULE PO SCH (09:00)
[2017-02-08] MEDS ORDERED: LISINOPRIL (5MG) 5 MG TABLET PO SCH (09:00)
[2017-02-08] MEDS ORDERED: METOPROLOL SUCCINATE 50 MG TAB.SR.24H PO SCH (09:00)
[2017-02-08] MEDS ORDERED: POTASSIUM CHLORIDE 20 MEQ TAB.PRT.SR PO SCH (09:00)
[2017-02-08] MEDS: SPIRONOLACTONE 25 MG TABLET PO SCH (10:14)
[2017-02-08] MEDS: BUPROPION XL 150 MG TAB.ER.24 PO SCH (10:15)
[2017-02-08] MEDS: CARVEDILOL 12.5 MG TABLET PO SCH ×2 (10:17→21:32)
[2017-02-08] MEDS: FUROSEMIDE 40 MG/4 ML VIAL IV SCH ×2 (10:20→14:22)
[2017-02-08] MEDS: PANTOPRAZOLE 40 MG VIAL IV SCH (10:27)
--- NOTE | 2017-02-08 11:00 | NUR ---
TELE/RN NOTES DISCONTINUED IV FLUIDS PER MD ORDERS DUE TO PT. RECEIVING 40MG OF LASIX IV PUSH TWICE.
[2017-02-08 12:00] VITALS: BP 141/106
[2017-02-08] MEDS ORDERED: ZOLPIDEM TARTRATE 5 MG TABLET PO PRN (12:30)
[2017-02-08] MEDS ORDERED: LORAZEPAM 1 MG TABLET PO PRN (12:30)
[2017-02-08 16:00] VITALS: BP 128/98
[2017-02-08] MEDS ORDERED: clonazePAM 1 MG TABLET PO SCH (18:00)
--- NOTE | 2017-02-08 19:30 | NUR ---
TELE/RN CLOSING NOTES PT. IS IN BED A&OX4. NO SOB, BREATHING ON ROOM AIR UNLABORED. NO S/S OF ACUTE DISTRESS, AND DENIES NAUSEA AT THIS TIME. PT. HAS IV ACCESS ON LEFT FOREARM PATENT AND INTACT. BED IS IN LOW POSITION, 2 SIDE RAILS UP, AND INSTRUCTED PT. TO US CALL LIGHT FOR ASSISTANCE.
[2017-02-08 20:00] VITALS: BP 135/95
--- NOTE | 2017-02-08 20:00 | NUR ---
SENIOR SQL DATABASE DEVELOPER OPENING NOTES: RECEIVED PATIENT IN BED, AWAKE, NO NO COMPLAINS OF PAIN OR DISCOMFORT THIS TIME OF ASSESSMENT. PATIENT IS WITH HEPLOCK ON LEFT FOREARM G#20. NO SIGNS OF REDNESS, INFLAMMATION OR INFECTION ON SITE. PATIENT IS ALERT AND ORIENTED X4, ABLE TO MAKE NEEDS KNOWN. PLACED CALL LIGHT WITHIN PATIENT'S REACH. REMINDED PATIENT OF HER NPO STATUS. BED IN LOCKED POSITION. KEPT PATIENT DRY AND COMFORTABLE. WILL CONTINUE TO MONITOR.
[2017-02-08 21:02] LABS: APPEARANCE,URINE CLEAR (CLEAR); BILIRUBIN,URINE NEGATIVE (NEGATIVE); BLOOD, URINE NEGATIVE Ery/uL (NEGATIVE); COLOR,URINE YELLOW (YELLOW); KETONES,URINE NEGATIVE (NEGATIVE); LEUKOCYTE ESTERASE ,URINE NEGATIVE (NEGATIVE); NITRITE, URINE NEGATIVE (NEGATIVE); PH,URINE 5.5 (5.0-8.0); PROTEIN,URINE NEGATIVE (NEGATIVE); UGLUCOSE NEGATIVE (NEGATIVE); UROBILINOGEN,URINE 0.2 EU/dL (0.2)
[2017-02-08] MEDS: ESCITALOPRAM OXALATE (10 MG) 10 MG TABLET PO SCH (21:33)
[2017-02-09] VITALS: BP 114/79
--- NOTE | 2017-02-09 | NUR ---
STREET SWEEPER OPERATOR NOTES: PATIENT IN BED, TELEMETRY MONITORING SHOWS SR AT 91BEATS/MIN. PATIENT HAS NO COMPLAINS THIS TIME OF ASSESSMENT. NOT IN RESPIRATORY DISTRESS. WILL CONTINUE TO MONITOR.
--- NOTE | 2017-02-09 06:27 | NUR ---
CARDIAC EXERCISE SPECIALIST CLOSING NOTES: PATIENT IN BED, WITH HEPLOCK IN PLACE. FLUSHING DONE. PATIENT DID NOT REPORT ANY SIGNS OF PAIN, NO NAUSEA AND VOMITING NOTED THIS TIME OF ASSESSMENT. NO RESPIRATORY DISTRESS THIS TIME.TELEMETRY RECORDING SHOWS SINUS RHYTHM AT 81BEATS/MIN. PLACED CALL LIGHT WITHIN PATIENTS REACH. ATTENDED TO ALL PATIENTS NEEDS. WILL CONTINUE TO MONITOR. WILL ENDORSE TO DAY SHIFT NURSE.
--- NOTE | 2017-02-09 07:05 | NUR ---
WHEEL ASSEMBLER OPENING NOTES RECEIVED PT. FROM NIGHTSHIFT NURSE IN STABLE CONDITION. PT. IS A/O X4. NO SOB OR SIGNS OF DISTRESS NOTED. PT. DENIES PAIN OR NAUSEA AT THIS TIME. NO EPISODES OF VOMITING OCCURRED DURING THE NIGHT PER THE NIGHTSHIFT NURSE AND PATIENT. IV PRESENT ON LEFT FOREARM 20G PATENT TO NS FLUSH AND INTACT. NO REDNESS OR SIGNS OF INFILTRATION NOTED. BED IN LOW LOCKED POSITION, SIDE RAILS UP X2, CALL LIGHT WITHIN REACH. WILL CONTINUE TO MONITOR.
[2017-02-09 07:11] LABS: BASOPHILS % (AUTO) 0.1 % (0.0-2.0); HEMATOCRIT 42 % (33-45); HEMOGLOBIN 13.2 g/dL (11.5-14.8); LYMPHOCYTES # (AUTO) 1.6 /CMM (0.8-4.8); MEAN CORPUSCULAR HEMOGLOBIN 27 PG (26.0-33.0); MEAN CORPUSCULAR HGB CONC 31 g/dl (31.0-36.0); MEAN CORPUSCULAR VOLUME 86 fL (82-100); MONOCYTES # (AUTO) 1.1 /CMM (0.1-1.30); MONOCYTES % (AUTO) 7.3 % (2.0-12.0); NEUTROPHILS # (AUTO) 12.9 /CMM (1.8-8.9); NEUTROPHILS % (AUTO) 82.6 % (43.0-81.0); PLATELET COUNT (AUTO) 404 /CMM (150-450); RDW COEFFICIENT OF VARIATION 16.4 (11.5-15.0); RED BLOOD CELL COUNT(AUTO) 4.91 MIL/uL (4.0-5.2); WHITE BLOOD COUNT (AUTO) 15.6 K/uL (4.3-11.0)
[2017-02-09 07:44] LABS: ALBUMIN 3.6 g/dL (3.4-5.0); BILIRUBIN,TOTAL 1.8 mg/dL (0.2-1.0); CALCIUM, SERUM 9.4 mg/dL (8.5-10.1); CREATININE 1.7 mg/dL (0.6-1.3); MAGNESIUM 1.6 mg/dL (1.8-2.4); PHOSPHORUS 4.3 mg/dL (2.5-4.9); POTASSIUM 4.1 mmol/L (3.5-5.1); TOTAL PROTEIN, SERUM 6.3 g/dL (6.4-8.2)
[2017-02-09 07:47] LABS: THYROID STIMULATING HORMONE 7.645 uIU/mL (0.358-3.74)
[2017-02-09 08:00] VITALS: BP 127/68
[2017-02-09] MEDS: SPIRONOLACTONE 25 MG TABLET PO SCH (09:22)
[2017-02-09] MEDS: RAMIPRIL 5 MG CAPSULE PO SCH (09:22)
[2017-02-09] MEDS: CARVEDILOL 12.5 MG TABLET PO SCH ×2 (09:22→21:00)
[2017-02-09] MEDS: PANTOPRAZOLE 40 MG VIAL IV SCH (09:23)
[2017-02-09] MEDS: BUPROPION XL 150 MG TAB.ER.24 PO SCH (09:23)
[2017-02-09] MEDS ORDERED: SECONDARY IV SET 1 EA INFUS.SET MC ONE (09:43)
[2017-02-09] MEDS: Magnesium 1GM/D5W 100ML PREMIX 100 ML IV SCH ×2 (09:56→11:58)
[2017-02-09] MEDS: FUROSEMIDE 40 MG/4 ML VIAL IV SCH ×2 (09:56→14:06)
[2017-02-09 12:00] VITALS: BP 111/81
--- NOTE | 2017-02-09 15:45 | NUR ---
SAP TECHNICAL DEVELOPER NOTES PT. WENT DOWN FOR SCHEDULED EGD PROCEDURE
[2017-02-09] MEDS ORDERED: ANESTHESIA TRAY IN PYXIS 1 EA TRAY MC ONE (16:38)
[2017-02-09 17:00] VITALS: BP 125/69
--- NOTE | 2017-02-09 17:10 | NUR ---
GAMING FLOOR SUPERVISOR NOTES PT. TRANSFERRED BACK TO UNIT FROM EGD PROCEDURE. PT IS IN STABLE CONDITION. VITALS ARE FOLLOWED: BP: 125/79 HR: 90 RR: 18 O2: 98% TEMP: 98.2 WILL CONTINUE TO MONITOR AND ADVANCE DIET TO FULL LIQUIDS ORDERED BY DR. SALMERON
--- NOTE | 2017-02-09 18:46 | NUR ---
ROOF PAINTER CLOSING NOTES PT. REMAINS IN STABLE CONDITION. NO ACUTE CHANGES IN CONDITION OCCURRED DURING SHIFT. NO EPISODES OF NAUSEA OR VOMITING. PT. STATES THAT SHE IS A BIT TIRED FROM PROCEDURE AND WILL LIKE TO REST. ALL NEEDS WERE MET AND ANTICIPATED FOR DURING SHIFT. ALL ORDERS CARRIED OUT ACCORDINGLY. WILL ENDORSE TO NIGHTSHIFT NURSE FOR IRLANDA
--- NOTE | 2017-02-09 19:46 | NUR ---
AUTHORIZATION MANAGER NOTE RECEIVED PATIENT FROM DAY SHIFT, PATIENT IS ALERT AND ORIENTEDX3, DENIES FEELING NAUSEOUS OR PAIN AT THIS TIME, IV ON LEFT FA IS PATENT AND INTACT, HL ONLY. TELE MONITOR SR 75 WITH INVERTED T WAVE. SRX2, BED IN LOW POSITION, CALL LIGHT WITHIN REACH, WILL CONTINUE TO MONITOR PATIENT.
[2017-02-09 20:00] VITALS: BP 101/61
[2017-02-09] MEDS: ESCITALOPRAM OXALATE (10 MG) 10 MG TABLET PO SCH (21:15)
[2017-02-09 23:56] VITALS: BP 107/68
[2017-02-10 04:00] VITALS: BP 109/77
--- NOTE | 2017-02-10 06:52 | NUR ---
ENVIRONMENTAL TEST TECHNICIAN NOTE PATIENT IS RESTING IN BED COMFORTABLY, NO S/S OF RESPIRATORY DISTRESS OR PAIN AT THIS TIME. NO ACUTE DISTRESS NOTED DURING THE HOLD WORKER. TELE MONITOR SR 71. WILL ENDORSE TO DAY SHIFT NURSE FOR IRLANDA.
[2017-02-10 07:00] LABS: BASOPHILS % (AUTO) 0.3 % (0.0-2.0); EOSINOPHILS # (AUTO) 0.1 /CMM (0.0-0.7); EOSINOPHILS % (AUTO) 0.8 % (0.0-6.0); HEMATOCRIT 41 % (33-45); HEMOGLOBIN 13.2 g/dL (11.5-14.8); LYMPHOCYTES # (AUTO) 2.5 /CMM (0.8-4.8); MEAN CORPUSCULAR HEMOGLOBIN 27 PG (26.0-33.0); MEAN CORPUSCULAR HGB CONC 32 g/dl (31.0-36.0); MEAN CORPUSCULAR VOLUME 84 fL (82-100); MONOCYTES % (AUTO) 7.6 % (2.0-12.0); NEUTROPHILS # (AUTO) 9.7 /CMM (1.8-8.9); NEUTROPHILS % (AUTO) 72.3 % (43.0-81.0); PLATELET COUNT (AUTO) 311 /CMM (150-450); RDW COEFFICIENT OF VARIATION 15.8 (11.5-15.0); WHITE BLOOD COUNT (AUTO) 13.4 K/uL (4.3-11.0)
--- NOTE | 2017-02-10 07:05 | NUR ---
SENIOR CARE MANAGER OPENING NOTES RECEIVED PT. FROM NIGHTSHIFT NURSE IN STABLE CONDITION. PT. IS A/O X4. NO SOB OR SIGNS OF DISTRESS NOTED. PT. DENIES PAIN OR NAUSEA AT THIS TIME. NO EPISODES OF VOMITING OCCURRED DURING THE NIGHT PER THE NIGHTSHIFT NURSE AND PATIENT. IV PRESENT ON LEFT FOREARM 20G PATENT TO NS FLUSH AND INTACT. SINUS RHYTHM ON THE MONITOR WITH A HR OF 61. NO REDNESS OR SIGNS OF INFILTRATION NOTED. BED IN LOW LOCKED POSITION, SIDE RAILS UP X2, CALL LIGHT WITHIN REACH. WILL CONTINUE TO MONITOR.
[2017-02-10 07:08] LABS: ALBUMIN 3.3 g/dL (3.4-5.0); BILIRUBIN,TOTAL 1.9 mg/dL (0.2-1.0); CALCIUM, SERUM 8.8 mg/dL (8.5-10.1); CREATININE 1.6 mg/dL (0.6-1.3); MAGNESIUM 1.8 mg/dL (1.8-2.4); PHOSPHORUS 3.4 mg/dL (2.5-4.9)
[2017-02-10 08:00] VITALS: BP 116/76
[2017-02-10 08:38] LABS: POTASSIUM 2.8 mmol/L (3.5-5.1)
[2017-02-10] MEDS: SPIRONOLACTONE 25 MG TABLET PO SCH (09:00)
[2017-02-10] MEDS: RAMIPRIL 5 MG CAPSULE PO SCH (09:00)
[2017-02-10] MEDS: CARVEDILOL 12.5 MG TABLET PO SCH ×2 (09:00→20:38)
--- NOTE | 2017-02-10 09:14 | NUR ---
WARD SECRETARY NOTES PT. WAS TAKEN DOWN FOR SMALL BOWEL FOLLOW . NPO STATUS WAS MAINTAINED SINCE MIDNIGHT. 0900 MEDICATIONS WERE HELD AND WILL BE ADMINISTERED WHEN PT. ARRIVES TO UNIT.
[2017-02-10] MEDS ORDERED: DIATR MEGLU/DIATRIZOATE SODIUM 120 ML BOTTLE (GASTROGRAPHIN) ONE (09:28)
--- NOTE | 2017-02-10 09:38 | NUR ---
GUIDE TOUR NOTES PT'S POTASSIUM IS 2.8. DR LEMUS WAS MADE AWARE AND ORDERED 40MEQ NOW AND ANOTHER 40MEQ AT 1500. WILL CARRY OUT ORDER
[2017-02-10] MEDS ORDERED: POTASSIUM CHLORIDE 20 MEQ TAB.PRT.SR PO ONE ×3 (11:07→20:00)
[2017-02-10] MEDS: PANTOPRAZOLE 40 MG VIAL IV SCH (11:16)
[2017-02-10] MEDS: BUPROPION XL 150 MG TAB.ER.24 PO SCH (11:17)
[2017-02-10 12:00] VITALS: BP 109/67
[2017-02-10 16:00] VITALS: BP 100/76
[2017-02-10] MEDS ORDERED: FUROSEMIDE 20 MG/2 ML VIAL IV ONE (17:00)
--- NOTE | 2017-02-10 18:22 | NUR ---
MENAGERIE CARETAKER CLOSING NOTES PT. REMAINS IN STABLE CONDITION. NO ACUTE CHANGES IN CONDITION OCCURRED DURING SHIFT. ALL NEEDS WERE MET AND ANTICIPATED FOR DURING SHIFT. ALL ORDERS CARRIED OUT ACCORDINGLY. FAMILY AT BEDSIDE. WILL ENDORSE TO NIGHTSHIFT NURSE FOR IRLANDA
--- NOTE | 2017-02-10 19:40 | NUR ---
STIPPLER NOTE RECEIVED PATIENT FROM DAY SHIFT, PATIENT IS ALERT AND ORIENTEDX4, DENIES RESPIRATORY DISTRESS OR PAIN, AND COMPLAINS OF LIGHT DIZZINESS AT THIS TIME. TELE MONITOR SR 83. IV ON LEFT FA IS PATENT AND INTACT, HL ONLY. SRX2, BED IN LOW POSITION, CALL LIGHT WITHIN REACH, WILL CONTINUE TO MONITOR PATIENT.
[2017-02-10 20:00] VITALS: BP 94/73
[2017-02-10] MEDS: ESCITALOPRAM OXALATE (10 MG) 10 MG TABLET PO SCH (21:14)
[2017-02-11] VITALS: BP 112/69
[2017-02-11 04:00] VITALS: BP 98/76
--- NOTE | 2017-02-11 06:52 | NUR ---
MINER OPERATOR NOTE PATIENT IS RESTING IN BED COMFORTABLY, NO S/S OF RESPIRATORY DISTRESS OR PAIN PRESENT AT THIS TIME. NO ACUTE DISTRESS NOTED DURING THE TRAVEL TRAILER COMPONENTS ASSEMBLER, WILL ENDORSE TO DAY SHIFT FOR IRLANDA. TELE MONITOR SR 77.
[2017-02-11 07:26] LABS: BASOPHILS % (AUTO) 0.1 % (0.0-2.0); EOSINOPHILS # (AUTO) 0.2 /CMM (0.0-0.7); EOSINOPHILS % (AUTO) 1.3 % (0.0-6.0); HEMATOCRIT 47 % (33-45); HEMOGLOBIN 14.8 g/dL (11.5-14.8); LYMPHOCYTES # (AUTO) 2.4 /CMM (0.8-4.8); LYMPHOCYTES % (AUTO) 19.7 % (20.0-44.0); MEAN CORPUSCULAR HEMOGLOBIN 27 PG (26.0-33.0); MEAN CORPUSCULAR HGB CONC 32 g/dl (31.0-36.0); MEAN CORPUSCULAR VOLUME 84 fL (82-100); MONOCYTES # (AUTO) 1.2 /CMM (0.1-1.30); MONOCYTES % (AUTO) 9.7 % (2.0-12.0); NEUTROPHILS # (AUTO) 8.5 /CMM (1.8-8.9); NEUTROPHILS % (AUTO) 69.2 % (43.0-81.0); PLATELET COUNT (AUTO) 335 /CMM (150-450); RDW COEFFICIENT OF VARIATION 16.2 (11.5-15.0); RED BLOOD CELL COUNT(AUTO) 5.52 MIL/uL (4.0-5.2); WHITE BLOOD COUNT (AUTO) 12.3 K/uL (4.3-11.0)
[2017-02-11 07:59] LABS: ALBUMIN 3.4 g/dL (3.4-5.0); BILIRUBIN,TOTAL 1.6 mg/dL (0.2-1.0); CALCIUM, SERUM 9.3 mg/dL (8.5-10.1); CREATININE 1.5 mg/dL (0.6-1.3); MAGNESIUM 2.1 mg/dL (1.8-2.4); PHOSPHORUS 3.3 mg/dL (2.5-4.9); POTASSIUM 3.8 mmol/L (3.5-5.1); TOTAL PROTEIN, SERUM 6.5 g/dL (6.4-8.2)
[2017-02-11 08:00] VITALS: BP 91/66
--- NOTE | 2017-02-11 08:00 | NUR ---
RN MS NOTES RECEIVED PATIENT IN BED, A/O X3, IN NO APPARENT DISTRESS, DENIES PAIN, DENIES NAUSEA, NO SOB NOTED. ON TELE MONITORING SR 80S, IV LINE ON LFA PATENT. ALL NEEDS MET, KEPT CLEAN AND DRY, CALL LIGHT WITHIN REACH.
[2017-02-11] MEDS: CARVEDILOL 12.5 MG TABLET PO SCH ×2 (09:00→21:00)
[2017-02-11] MEDS: RAMIPRIL 5 MG CAPSULE PO SCH (09:00)
[2017-02-11] MEDS: FUROSEMIDE 80 MG TABLET PO SCH (09:00)
[2017-02-11] MEDS: SPIRONOLACTONE 25 MG TABLET PO SCH (09:00)
[2017-02-11] MEDS: BUPROPION XL 150 MG TAB.ER.24 PO SCH (10:01)
[2017-02-11] MEDS: PANTOPRAZOLE 40 MG VIAL IV SCH (10:01)
[2017-02-11] MEDS: POTASSIUM CHLORIDE 20 MEQ TAB.PRT.SR PO SCH (10:12)
[2017-02-11 16:00] VITALS: BP 91/64
--- NOTE | 2017-02-11 18:32 | NUR ---
RN MS CLOSING NOTES PATIENT IN BED, A/OX4, IN NO APPARENT DISTRESS. ALL DUE MEDS GIVEN, ALL NEEDS MET. BP MEDS AND LASIX HELD THIS MORNING DUE TO SBP IN THE 90S, DR LEMUS AWARE. IV LINE ON LEFT FORE ARM PATENT. WILL ENDORSE CARE TO PM SHIFT.
--- NOTE | 2017-02-11 19:15 | NUR ---
RN OPEN NOTES RECEIVED PATIENT AWAKE IN BED. A.O X4. NO SIGNS OF DISTRESS OR DISCOMFORT. BREATHING EVEN AND UNLABORED. IV ACCESS IN LFA PATENT AND INTACT, NO SIGNS OF REDNESS OR INFILTRATION. BED IN LOW LOCKED POSITION WITH SIDE RAILS X2. CALL LIGHT WITHIN REACH. WILL CONTINUE TO MONITOR.
[2017-02-11 20:00] VITALS: BP 97/68
[2017-02-11] MEDS: ESCITALOPRAM OXALATE (10 MG) 10 MG TABLET PO SCH (22:02)
[2017-02-12 06:37] LABS: BASOPHILS % (AUTO) 0.2 % (0.0-2.0); EOSINOPHILS # (AUTO) 0.3 /CMM (0.0-0.7); EOSINOPHILS % (AUTO) 2.3 % (0.0-6.0); HEMATOCRIT 45 % (33-45); HEMOGLOBIN 14.6 g/dL (11.5-14.8); LYMPHOCYTES # (AUTO) 4.3 /CMM (0.8-4.8); LYMPHOCYTES % (AUTO) 33.5 % (20.0-44.0); MEAN CORPUSCULAR HEMOGLOBIN 27 PG (26.0-33.0); MEAN CORPUSCULAR HGB CONC 32 g/dl (31.0-36.0); MEAN CORPUSCULAR VOLUME 84 fL (82-100); MONOCYTES % (AUTO) 7.4 % (2.0-12.0); NEUTROPHILS # (AUTO) 7.3 /CMM (1.8-8.9); NEUTROPHILS % (AUTO) 56.6 % (43.0-81.0); PLATELET COUNT (AUTO) 321 /CMM (150-450); RED BLOOD CELL COUNT(AUTO) 5.36 MIL/uL (4.0-5.2)
--- NOTE | 2017-02-12 06:39 | NUR ---
RN CLOSING NOTES PATIENT RESTING IN BED, EASILY AROUSABLE TO NAME. A.O X4. NO SIGNS OF DISTRESS OR DISCOMFORT. BREATHING EVEN AND UNLABORED. IV ACCESS IN LFA PATENT AND INTACT, NO SIGNS OF REDNESS OR INFILTRATION. NO SIGNIFICANT CHANGES THROUGH THE NIGHT. ALL NEEDS MET. BED IN LOW LOCKED POSITION WITH SIDE RAILS X2. CALL LIGHT WITHIN REACH. WILL ENDORSE TO AM SHIFT FOR IRLANDA.
[2017-02-12 07:04] LABS: CALCIUM, SERUM 9.3 mg/dL (8.5-10.1); CREATININE 1.3 mg/dL (0.6-1.3); MAGNESIUM 1.8 mg/dL (1.8-2.4); PHOSPHORUS 2.9 mg/dL (2.5-4.9); POTASSIUM 3.8 mmol/L (3.5-5.1)
--- NOTE | 2017-02-12 07:47 | NUR ---
RN MS NOTES RECEIVED PATIENT IN BED, A/OX 4, IN NO APPARENT DISTRESS, DENIES SOB DENIES PAIN. IV LINE ON LEFT FORE ARM PATENT, SO S/S OF INFILTRATION NOTED. ALL NEEDS MET, CALL LIGHT WITHIN REACH.
[2017-02-12 08:00] VITALS: BP 104/78
[2017-02-12 09:00] VITALS: BP 94/69
[2017-02-12] MEDS: CARVEDILOL 12.5 MG TABLET PO SCH (09:00)
[2017-02-12] MEDS: SPIRONOLACTONE 25 MG TABLET PO SCH (09:00)
[2017-02-12] MEDS: RAMIPRIL 5 MG CAPSULE PO SCH (09:00)
[2017-02-12] MEDS: FUROSEMIDE 80 MG TABLET PO SCH (09:00)
[2017-02-12] MEDS: BUPROPION XL 150 MG TAB.ER.24 PO SCH (09:57)
[2017-02-12] MEDS: PANTOPRAZOLE 40 MG VIAL IV SCH (09:57)
[2017-02-12] MEDS: POTASSIUM CHLORIDE 20 MEQ TAB.PRT.SR PO SCH (09:59)
--- NOTE | 2017-02-12 10:00 | NUR ---
RN MS NOTES ALL BP MEDS HELD DUE TO BP OF 94/69.
[2017-02-12] MEDS ORDERED: BUME1TAB4 PO (14:42)
--- NOTE | 2017-02-12 15:40 | NUR ---
RN MS NOTES PATIENT LEFT, IN STABLE CONDITION, VIA PRIVATE CAR, ACCOMPANIED BY HER FANY. NO APPARENT DISTRESS NOTED, DENIES PAIN, DENIES SOB. ALL DUE MEDS GIVEN, ALL NEEDS MET. SKIN CLEAR AND INTACT, IV LINE DISCONTINUED. NO S/S OF INFILTRATION NOTED. DISCHARGE INSTRUCTIONS REVIEWED WIT PATIENT AND , THEY SATED UNDERSTANDING. DR MELENDREZ REVIEWED MEDIATION LIST WITH PATIENT AND . EXIT CARE EDUCATIONAL INFORMATION PROVIDED AND REVIEWED.
[2017-02-12] MEDS ORDERED: RIVAROXABAN 10 MG TABLET PO SCH (17:00)
== END 2017-02-12 15:40 | disposition home or self-care (01) | DRG 391 ==
LOC: ER 23:35 → MED 02-08 02:53 → TELE 02-08 03:20 → MED 02-11 09:01
PROVIDERS: ADMIT Family Medicine; ATTEND Family Medicine
PROC: 0DB68ZX Excision of Stomach, Via Natural or Artificial Opening Endoscopic, Diagnostic (ICD-10-PCS; principal; 2017-02-09 16:00)
DX: K31.84 Gastroparesis (principal); N17.0 Acute kidney failure with tubular necrosis; I13.0 Hypertensive heart and chronic kidney disease with heart failure and stage 1 through stage 4 chronic kidney disease, or unspecified chronic kidney disease; I42.9 Cardiomyopathy, unspecified; R18.8 Other ascites; I50.22 Chronic systolic (congestive) heart failure; D72.829 Elevated white blood cell count, unspecified; F41.1 Generalized anxiety disorder; K21.9 Gastro-esophageal reflux disease without esophagitis; K76.0 Fatty (change of) liver, not elsewhere classified; N18.3 Chronic kidney disease, stage 3 (moderate); I25.2 Old myocardial infarction; R10.9 Unspecified abdominal pain; Z79.899 Other long term (current) drug therapy; E87.6 Hypokalemia; E02 Subclinical iodine-deficiency hypothyroidism; I25.10 Atherosclerotic heart disease of native coronary artery without angina pectoris; I51.3 Intracardiac thrombosis, not elsewhere classified; K44.9 Diaphragmatic hernia without obstruction or gangrene; K76.1 Chronic passive congestion of liver; F41.0 Panic disorder [episodic paroxysmal anxiety]
CPT/HCPCS: 36415; 71010-TC; 74250-TC; 76856-TC; 80048-TC; 80053-TC; 80061-TC; 80076-TC; 81000-TC; 82533; 83690-TC; 83735-TC; 83880; 84100-TC; 84439-TC; 84443-TC; 84484-TC; 85025-TC; 85730-TC; 87081-TC; 87086-TC; 88305-TC; 88313-TC; 88342; 93308-TC; 94799-TC; A4606; C9113; J1200; J1940; J2405; J2765; J3475; J3490; J7030; Q9963; Z7610

== ENCOUNTER 2017-08-26 14:16 | Emergency (ER) | payer OTHER ==
[~2017-08-26] VITALS: Ht 167.6 cm; Wt 65.8 kg
[~2017-08-26 14:16] MED LIST changes: +ALPR0.5T8 PO; +BUME1TAB4 PO; +CARV25TA2 PO; +CLON1TAB4 PO; -LISI5TAB45 PO; +ONDA4TAB11 PO; +RANI150T12 PO; +SPIR25TA4 PO
[2017-08-26] MEDS ORDERED: ONDANSETRON HCL/PF 4 MG/2 ML VIAL ONE (15:01)
[2017-08-26 15:04] LABS: BASOPHILS % (AUTO) 0.1 % (0.0-2.0); EOSINOPHILS # (AUTO) 0.1 /CMM (0.0-0.7); EOSINOPHILS % (AUTO) 0.8 % (0.0-6.0); HEMATOCRIT 31 % (33-45); HEMOGLOBIN 10.7 g/dL (11.5-14.8); LYMPHOCYTES # (AUTO) 0.8 /CMM (0.8-4.8); LYMPHOCYTES % (AUTO) 6.6 % (20.0-44.0); MEAN CORPUSCULAR HEMOGLOBIN 32 PG (26.0-33.0); MEAN CORPUSCULAR HGB CONC 35 g/dl (31.0-36.0); MEAN CORPUSCULAR VOLUME 90 fL (82-100); MONOCYTES # (AUTO) 0.2 /CMM (0.1-1.30); MONOCYTES % (AUTO) 1.9 % (2.0-12.0); NEUTROPHILS # (AUTO) 11.2 /CMM (1.8-8.9); NEUTROPHILS % (AUTO) 90.6 % (43.0-81.0); PLATELET COUNT (AUTO) 391 /CMM (150-450); RDW COEFFICIENT OF VARIATION 12.1 (11.5-15.0); RED BLOOD CELL COUNT(AUTO) 3.41 MIL/uL (4.0-5.2); WHITE BLOOD COUNT (AUTO) 12.3 K/uL (4.3-11.0)
[2017-08-26 15:13] LABS: CALCIUM, SERUM 10.1 mg/dL (8.5-10.1); CARBON DIOXIDE 27 mmol/L (21-32); CHLORIDE 100 mmol/L (98-107); CREATININE 2.6 mg/dL (0.6-1.3); GLUCOSE 195 mg/dL (74-106); POTASSIUM 3.6 mmol/L (3.5-5.1); SODIUM SERUM 138 mmol/L (136-145); UREA NITROGEN, BLOOD 34 mg/dL (7-18)
[2017-08-26 15:20] LABS: INR 1.02 (0.87-1.13); PROTHROMBIN TIME 10.6 SECS (9.5-12.7)
[2017-08-26 15:23] LABS: TROPONIN I < 0.017 ng/mL (0.00-0.056)
[2017-08-26] MEDS ORDERED: ALBUTEROL FS 2.5 MG/3 ML VIAL.NEB ONE (15:27)
[2017-08-26] MEDS ORDERED: IPRATROPIUM NEB FS 0.5 MG/2.5 ML AMPUL.NEB ONE (15:27)
[2017-08-26] MEDS: ONDANSETRON HCL/PF 4 MG/2 ML VIAL IVP ONE (15:28)
[2017-08-26] MEDS: IPRATROPIUM NEB FS 0.5 MG/2.5 ML AMPUL.NEB NEB ONE (15:29)
[2017-08-26] MEDS: ALBUTEROL FS 2.5 MG/3 ML VIAL.NEB NEB ONE (15:29)
[2017-08-26] MEDS ORDERED: METOCLOPRAMIDE HCL 10 MG/2 ML VIAL ONE (16:25)
[2017-08-26] MEDS: METOCLOPRAMIDE HCL 10 MG/2 ML VIAL IV ONE (16:30)
[2017-08-26] MEDS ORDERED: diphenhydrAMINE HCL 50 MG/ML VIAL ONE (16:44)
[2017-08-26] MEDS: diphenhydrAMINE HCL 50 MG/ML VIAL IV ONE (16:45)
[2017-08-26] MEDS ORDERED: LORAZEPAM INJ 2 MG/ML VIAL ONE (16:45)
[2017-08-26] MEDS: LORAZEPAM INJ 2 MG/ML VIAL IV ONE (16:50)
[2017-08-26 17:45] VITALS: BP 136/62
--- NOTE | 2017-08-26 17:55 | NUR ---
IV removed. Catheter intact and site benign. Pressure and 4x4 applied to site. No bleeding noted.Patient discharged to home in stable condition. Written and verbal after care instructions given. Patient verbalizes understanding of instruction.
== END 2017-08-26 17:57 | disposition home or self-care (01) ==
LOC: ER 14:29
DX: R11.2 Nausea with vomiting, unspecified (principal); D64.9 Anemia, unspecified; N28.9 Disorder of kidney and ureter, unspecified; I50.9 Heart failure, unspecified; K21.9 Gastro-esophageal reflux disease without esophagitis; E28.2 Polycystic ovarian syndrome; Z98.890 Other specified postprocedural states; Z90.89 Acquired absence of other organs; Z88.6 Allergy status to analgesic agent; Z88.1 Allergy status to other antibiotic agents
CPT/HCPCS: 36415; 71045; 80048; 84484; 85025; 85730; 87804; 93005; 94640 ×2; 96374 ×2; 96375; 99285; A4606; J1200; J2060; J2405; J2765; Z7610; 87400

== ENCOUNTER 2017-11-18 13:46 | Emergency (ER) | payer OTHER ==
[~2017-11-18] VITALS: Ht 165.1 cm; Wt 63.5 kg
[~2017-11-18 13:46] MED LIST changes: -CLON1TAB4 PO; +CLON1TAB5 PO; -RANI150T12 PO; +RANI150T43 PO; -SPIR25TA4 PO; +SPIR25TA6 PO
[2017-11-18] MEDS ORDERED: ONDANSETRON HCL/PF 4 MG/2 ML VIAL ONE (14:53)
[2017-11-18] MEDS ORDERED: LOPERAMIDE HCL (2 MG CAP) 2 MG CAPSULE PO ONE ×2 (14:53→15:00)
[2017-11-18] MEDS ORDERED: ONDANSETRON HCL/PF 4 MG/2 ML VIAL IVP ONE (15:00)
--- NOTE | 2017-11-18 15:00 | NUR ---
PT CAME IN WITH C/O N/V/D SINCE THIS AM. NOTED RESLTLESS. SEEN BY MD FOR EVAL. VSS. IV ACCESS STARTED. BLOOD DRAWN FOR LABS. SAFETY AND COMFORT MEASURES PROVIDED. WILL MONITOR.
[2017-11-18 15:03] LABS: BASOPHILS # (AUTO) 0.1 /CMM (0.0-0.2); BASOPHILS % (AUTO) 0.5 % (0.0-2.0); EOSINOPHILS % (AUTO) 0.9 % (0.0-6.0); HEMATOCRIT 29 % (33-45); HEMOGLOBIN 10.3 g/dL (11.5-14.8); LYMPHOCYTES # (AUTO) 1.3 /CMM (0.8-4.8); LYMPHOCYTES % (AUTO) 8.1 % (20.0-44.0); MEAN CORPUSCULAR HGB CONC 35 g/dl (31.0-36.0); MEAN CORPUSCULAR VOLUME 86 fL (82-100); MONOCYTES # (AUTO) 0.3 /CMM (0.1-1.30); MONOCYTES % (AUTO) 1.8 % (2.0-12.0); NEUTROPHILS # (AUTO) 14.7 /CMM (1.8-8.9); NEUTROPHILS % (AUTO) 88.7 % (43.0-81.0); PLATELET COUNT (AUTO) 266 /CMM (150-450); RDW COEFFICIENT OF VARIATION 14.1 (11.5-15.0); RED BLOOD CELL COUNT(AUTO) 3.39 MIL/uL (4.0-5.2); WHITE BLOOD COUNT (AUTO) 16.5 K/uL (4.3-11.0)
[2017-11-18 15:12] LABS: CALCIUM, SERUM 10.4 mg/dL (8.5-10.1); CREATININE 2.2 mg/dL (0.6-1.3); POTASSIUM 3.5 mmol/L (3.5-5.1)
[2017-11-18 15:18] LABS: ALBUMIN 4.3 g/dL (3.4-5.0); BILIRUBIN,DIRECT 0.1 mg/dL (0.0-0.2); BILIRUBIN,TOTAL 0.5 mg/dL (0.2-1.0); TOTAL PROTEIN, SERUM 8.3 g/dL (6.4-8.2)
[2017-11-18] MEDS ORDERED: LORAZEPAM INJ 2 MG/ML VIAL IV ONE (15:30)
--- NOTE | 2017-11-18 15:30 | NUR ---
PT REFUSES TO TRY TO GIVE URINE SAMPLE AT THIS TIME.
[2017-11-18] MEDS ORDERED: LORAZEPAM INJ 2 MG/ML VIAL ONE (15:33)
--- NOTE | 2017-11-18 16:49 | NUR ---
PT FINALLY CONSENTED TO IN AND OUT CATHETER. URINE SAMPLE OBTAINED, SENT.
[2017-11-18 17:07] LABS: APPEARANCE,URINE Cloudy (CLEAR); BILIRUBIN,URINE Negative (NEGATIVE); BLOOD, URINE Negative Ery/uL (NEGATIVE); COLOR,URINE Yellow (YELLOW); KETONES,URINE 15 (NEGATIVE); LEUKOCYTE ESTERASE ,URINE Negative (NEGATIVE); NITRITE, URINE Negative (NEGATIVE); PROTEIN,URINE 30 mg/dl (NEGATIVE); UGLUCOSE Negative (NEGATIVE); UROBILINOGEN,URINE 0.2 EU/dL (0.2)
--- NOTE | 2017-11-18 17:20 | NUR ---
IV removed. Catheter intact and site benign. Pressure and 4x4 applied to site. No bleeding noted.
--- NOTE | 2017-11-18 17:25 | NUR ---
Patient discharged to home in stable condition. Written and verbal after care instructions given. Patient verbalizes understanding of instruction.
[2017-11-18 17:26] VITALS: BP 131/77
[2017-11-18 17:26] LABS: BACTERIA,URINE Few /HPF (None Seen); RBC,URINE 0-2 /HPF (0-2); SQUAMOUS EPITHELIAL CELL,UR Few /HPF (None Seen); URINE AMORPHOUS URATE Moderate /HPF (None Seen); WBC,URINE 0-2 /HPF (0-3)
== END 2017-11-18 17:31 | disposition home or self-care (01) ==
LOC: ER 13:48
DX: R11.2 Nausea with vomiting, unspecified (principal); R19.7 Diarrhea, unspecified; F41.9 Anxiety disorder, unspecified; E28.2 Polycystic ovarian syndrome; F32.9 Major depressive disorder, single episode, unspecified; G47.00 Insomnia, unspecified; I13.0 Hypertensive heart and chronic kidney disease with heart failure and stage 1 through stage 4 chronic kidney disease, or unspecified chronic kidney disease; I42.9 Cardiomyopathy, unspecified; I50.9 Heart failure, unspecified; K21.9 Gastro-esophageal reflux disease without esophagitis; K56.609 Unspecified intestinal obstruction, unspecified as to partial versus complete obstruction; F12.10 Cannabis abuse, uncomplicated; N18.9 Chronic kidney disease, unspecified; O00.90 Unspecified ectopic pregnancy without intrauterine pregnancy; Z88.1 Allergy status to other antibiotic agents; Z90.89 Acquired absence of other organs; Z88.6 Allergy status to analgesic agent
CPT/HCPCS: 36415; 80048-TC; 80076-TC; 80305; 81000-TC; 83690-TC; 84703-TC; 85025-TC; A4606; G0480; J2060; J2405; Z7610

== ENCOUNTER 2023-11-24 14:41 | Emergency (ER) | payer OTHER ==
[~2023-11-24] VITALS: Ht 165.1 cm; Wt 73.0 kg
[~2023-11-24 14:41] MED LIST changes: -BUME1TAB4 PO; +BUME1TAB8 PO; -BUPR-51 PO; +BUPR-54 PO; +CLON1TAB12 PO; -CLON1TAB5 PO; +RANI-655 PO; -RANI150T43 PO
[2023-11-24] MEDS ORDERED: ONDANSETRON HCL/PF 4 MG/2 ML VIAL ONE (16:18)
[2023-11-24] MEDS ORDERED: PANTOPRAZOLE 40 MG VIAL ONE (16:18)
[2023-11-24 16:29] LABS: INR 0.95 (0.91-1.10); PROTHROMBIN TIME 9.8 SECS (9.2-11.1)
[2023-11-24 16:35] LABS: ALBUMIN 4.3 g/dL (3.4-5.0); BILIRUBIN,DIRECT 0.1 mg/dL (0.0-0.2); BILIRUBIN,TOTAL 0.6 mg/dL (0.2-1.0); CALCIUM, SERUM 10.6 mg/dL (8.5-10.1); CREATININE 1.7 mg/dL (0.6-1.3); POTASSIUM 3.5 mmol/L (3.5-5.1); TOTAL PROTEIN, SERUM 7.8 g/dL (6.4-8.2)
[2023-11-24] MEDS: IV NS 0.9% 500 ML BAG IV ONE (16:40)
[2023-11-24 16:42] LABS: BASOPHILS % (AUTO) 0.3 % (0.0-2.0); EOSINOPHILS % (AUTO) 0.1 % (0.0-6.0); HEMATOCRIT 40 % (33-45); HEMOGLOBIN 13.3 g/dL (11.5-14.8); LYMPHOCYTES # (AUTO) 0.9 K/uL (0.8-4.8); LYMPHOCYTES % (AUTO) 6.2 % (20.0-44.0); MEAN CORPUSCULAR HEMOGLOBIN 30 PG (26.0-33.0); MEAN CORPUSCULAR HGB CONC 33 g/dl (31.0-36.0); MEAN CORPUSCULAR VOLUME 90 fL (82-100); MONOCYTES # (AUTO) 0.3 K/uL (0.1-1.30); MONOCYTES % (AUTO) 2.2 % (2.0-12.0); NEUTROPHILS # (AUTO) 13.4 K/uL (1.8-8.9); NEUTROPHILS % (AUTO) 91.2 % (43.0-81.0); PLATELET COUNT (AUTO) 309 K/uL (150-450); RED BLOOD CELL COUNT(AUTO) 4.47 MIL/uL (4.0-5.2); RED CELL DISTRIBUTION WIDTH 13.9 % (11.5-15.0); WHITE BLOOD COUNT (AUTO) 14.7 K/uL (4.3-11.0)
[2023-11-24 16:45] LABS: PARTIAL THROMBOPLASTIN TIME 19.6 SEC (24.3-34.3)
[2023-11-24] MEDS: ONDANSETRON HCL/PF 4 MG/2 ML VIAL IV ONE (16:48)
[2023-11-24] MEDS: PANTOPRAZOLE 40 MG VIAL IV ONE (16:48)
[2023-11-24 16:51] LABS: APPEARANCE,URINE Clear (CLEAR); BILIRUBIN,URINE Negative (NEGATIVE); BLOOD, URINE Negative Ery/uL (NEGATIVE); COLOR,URINE YELLOW (YELLOW); KETONES,URINE 40 mg/dL (NEGATIVE); LEUKOCYTE ESTERASE ,URINE Negative (NEGATIVE); NITRITE, URINE Negative (NEGATIVE); PH,URINE 8.5 (5.0-8.0); PROTEIN,URINE 30 mg/dl (NEGATIVE); UGLUCOSE >=1000 mg/dL (NEGATIVE); UROBILINOGEN,URINE 0.2 EU/dL (0.2)
[2023-11-24] MEDS ORDERED: ONDA4TAB5 PO (17:35)
[2023-11-24 17:38] LABS: SQUAMOUS EPITHELIAL CELL,UR Few /HPF (None Seen)
[2023-11-24 17:39] LABS: ADD URINE CULTURE NO; BACTERIA,URINE Rare /HPF (None Seen); WBC,URINE 0-2 /HPF (0-3)
[2023-11-24 18:12] VITALS: BP 134/78; TEMP 97.8; O2SAT 100
== END 2023-11-24 18:12 | disposition home or self-care (01) ==
LOC: ER 14:47
DX: R11.2 Nausea with vomiting, unspecified (principal); R73.9 Hyperglycemia, unspecified; N18.9 Chronic kidney disease, unspecified; I50.9 Heart failure, unspecified; K21.9 Gastro-esophageal reflux disease without esophagitis; Z88.8 Allergy status to other drugs, medicaments and biological substances; Z90.89 Acquired absence of other organs; Z79.899 Other long term (current) drug therapy
CPT/HCPCS: 99285; 74176; 96374; 71045; 96361; 96375; 93005; 85025; 80048; 83690; 80076; 81001; 36415; 85730; J2405; C9113